=== PATIENT | female | born 1945 | race Caucasian/White ===

== ENCOUNTER 2019-09-21 08:36 | Outpatient (RCR) | payer MEDICARE, MEDICAID, SELFPAY | END 2019-09-28 00:01 | LOC: WOUND 08:36 | PROVIDERS: Family Provider Internal Medicine; Visit Provider Thoracic Surgery (Cardiothoracic Vascular Surgery) | DX: T81.31XA Disruption of external operation (surgical) wound, not elsewhere classified, initial encounter (principal); Y83.8 Other surgical procedures as the cause of abnormal reaction of the patient, or of later complication, without mention of misadventure at the time of the procedure; S80.211A Abrasion, right knee, initial encounter; X58.XXXA Exposure to other specified factors, initial encounter | CPT/HCPCS: 11042 ×3; G0463 ×2 ==

== ENCOUNTER 2019-10-01 10:17 | Day surgery (SDC) | payer MEDICARE, MEDICAID, SELFPAY ==
[2019-09-30 17:29] VITALS: BMI 57.5
[2019-10-01 11:03] LABS: Glucose Point of Care 112 mg/dL (70-110)
[2019-10-01 11:05] VITALS: BP 103/82; PULSE 107; RESP 18; TEMP 36.5; O2SAT 98
[2019-10-01] MEDS: sodium chloride 0.9% 1,000 ML 30 ML IV (11:10)
--- NOTE | 2019-10-01 11:12 | ANES.PREANES ---
Pre-Anesthetic Assessment Pre-Anesthetic Assessment: Height/Weight: Height 1.12 m Weight 71.849 kg Temp Pulse Resp BP Pulse Ox 97.7 F 107 H 18 103/82 98 10/01/19 11:05 10/01/19 11:05 10/01/19 11:05 10/01/19 11:05 10/01/19 11:05 Proposed Procedure: Operation Date: 10/01/19 12:00 Proposed Procedures p Debridement of Left Knee Ampuation(Left) - Pedro Hough MD Last intake: Intake Last Liquid Date 09/30/19 Last Liquid Time 23:30 Last Solid Date 09/30/19 Last Solid Time 18:00 Social: Social History: Tobacco Exam: Pre-Anes Outpt Exam: alert and oriented x 3 Additional Exam Findings (including area of procedure): coarse bilaterally, brething tx to be given Airway: Submandibular: WNL Cervical ROM: WNL MP: 1 Dentition: False Pulmonary: Pulmonary: Asthma and COPD CV/HEM: CV/HEM: CAD, CHF and TN Metabolic: Metabolic: DM Anesthetic Plan: ASA status: IV Anesthesia: Anesthesia Evaluation, General and MAC Meds/Allergies Current Medications: Current Medications Generic Name Dose Route Start Last Admin Trade Name Freq PRN Reason Stop Dose Admin Sodium Chloride 1,000 mls @ 30 ml s/hr 10/01/19 11:00 10/01/19 11:10 Sodium Chloride 0.9% IV 10/02/19 10:59 30 mls/hr .Q24H DOMINGO Administration PFSH Anesthesia PFSH: Medical History (Updated 10/01/19 @ 11:13 by Zackary Tineo MD) Arteriosclerotic heart disease (Acute) Carotid stenosis (Acute) Colon polyp (Acute) Critical lower limb ischemia (Acute) Diabetes mellitus (Acute) Diverticulosis (Acute) ESRD (end stage renal disease) on dialysis (Acute) Essential hypertension (Acute) Gastritis (Acute) Normal colonoscopy (Acute) NSTEMI (non-ST elevated myocardial infarction) (Acute) Pulmonary hypertension (Acute) PVD (peripheral vascular disease) (Acute) Smoker (Acute) Tricuspid valve regurgitation, nonrheumatic (Acute) Surgical History (Updated 10/01/19 @ 11:13 by Zackary Tineo MD) H/O carpal tunnel repair (Acute) H/O total knee replacement (Acute) History of arteriovenostomy for renal dialysis (Acute) History of back surgery (Acute) History of below knee amputation (Acute) History of cataract extraction (Acute) History of PTCA (Acute) History of total hip replacement (Acute) Hx of above knee amputation (Acute) Social History (Updated 09/30/19 @ 16:28 by Rupal Rodriguez RN) Smoking and tobacco status: current every day smoker cigarettes Packs smoked per day: 0.5 Second hand smoke exposure: Yes Smoking risk assessment/counseling performed?: Yes Data Anesthesia Labs: Other Labs: Laboratory Results - last 48 hr 10/01/19 10:59 POC Glucose 112 Cardiac Studies: No Data to Display
[2019-10-01 11:33] VITALS: PULSE 96; RESP 18; O2SAT 97
[2019-10-01 11:36] VITALS: PULSE 108
[2019-10-01 11:55] LABS: Basophils # 0.1 10^3/uL (0.0-0.1); Basophils % 0.6 %; Eosinophils # 0.2 10^3/uL (0.0-0.8); Eosinophils % 2.7 %; Hematocrit 37.9 % (37.0-47.0); Hemoglobin 11.8 g/dL (11.5-15.3); Lymphocytes # 0.7 10^3/uL (0.8-4.8); Mean Corpuscular HGB Conc 31.1 g/dL (30.0-36.0); Mean Corpuscular Hemoglobin 30.3 pg (28.0-34.0); Mean Corpuscular Volume 97.2 fL (81-99); Mean Platelet Volume 9.1 fL (7.4-10.4); Monocytes # 0.6 10^3/uL (0.2-0.9); Monocytes % 6.8 %; Neutrophils # 6.7 10^3/uL (1.8-7.7); Neutrophils % 80.5 %; Nucleated Red Blood Cells % 0 %; Platelet Count 251 10^3/cmm (130-400); Red Cell Distribution Width 17.2 % (12.1-15.1); White Blood Count 8.3 10^3/uL (4.0-10.0)
[2019-10-01] MEDS: ceFAZolin 1,000 mg SDV 1000 MG IRRIGATION (12:20)
[2019-10-01 12:21] LABS: Anion Gap 19.8 (5-19); Blood Urea Nitrogen 13 mg/dL (8-23); Calcium 9.7 mg/Dl (8.8-10.2); Carbon Dioxide 28 mmol/L (22-29); Chloride 93 mmol/L (98-107); Glucose 124 mg/dL (74-106); Potassium 3.8 mmol/L (3.5-5.1); Sodium 137 mmol/L (136-145)
[2019-10-01 12:58] VITALS: BP 99/61; PULSE 104; RESP 18; TEMP 36.1; O2SAT 99
--- NOTE | 2019-10-01 13:06 | P.OP_ITS ---
Operative Report Post-Operative Note: Date of procedure: 10/01/19 Preop Diagnosis: Dehiscence left AKA Post-op diagnosis: same Procedure Done: Incision and debridement of left AKA dehiscence Surgeon: Pedro Hough Anesthesia: MAC Estimated blood loss (mL): 30 IV fluids (mL): 500 Complications: None Condition: stable Disposition: same day Operative Report: Brief History: 74-year-old female with end-stage renal disease and diabetes mellitus with prior bilateral amputations, right BKA and recent left above-knee amputation. She is developed some breakdown of her left AKA incision with some tunneling medially. I have recommended surgical debridement. She has been followed in wound care services. Procedure: Ms. Fiore was taken operating room theater carefully positioned. She received IV conscious sedation anesthesia monitoring. Her entire left AKA was sterilely prepped and draped. Tunneling was noted medially from area of breakdown and this was infiltrated with 1% lidocaine and then opened with a #10 scalpel blade. Wound was then debrided and irrigated by hand. There is also smaller of tunneling laterally which was also opened up this measured only about 2 cm. The more medial incision is approximately 7 cm x 4 cm x 5 cm. After careful irrigation and debridement, the wound was packed wet-to-dry with saline impregnated Kerlix gauze. Sterile dressing was applied. She tolerated procedure well and was awakened from IV conscious sedation and taken to the [facility] surgery department. She will be returned to her local skilled care facility receive daily wet-to-dry dressing changes. I will see her in wound care clinic on Friday. Coding Level of Care Code Acute Director Game for Eugenia Duval
[2019-10-01 13:50] VITALS: BP 126/70; PULSE 107; RESP 18; O2SAT 100
--- NOTE | 2019-11-01 17:48 | PM.HPUD ---
H&P update H&P Update: DATE OF SURGERY/PROCEDURE: 10/01/19 DATE H&P PERFORMED: 09/21/19 H&P UPDATE INFORMATION: H&P completed within last 30 days PREOP DIAGNOSIS: Severe peripheral vascular disease, status post left above-knee amputation with limited dehiscence PRIMARY INDICATION FOR PROCEDURE: Localized dehiscence left AKA wound PLANNED PROCEDURE: Operation Date: 10/01/19 12:00 Proposed Procedures p Debridement of Left Knee Ampuation(Left) - Pedro Hough MD Full H&P Perinent History: Medical/Surgical History: Medical History (Updated 10/25/19 @ 21:05 by Robert Triplett MD) Arteriosclerotic heart disease (Acute) Carotid stenosis (Acute) Colon polyp (Acute) Critical lower limb ischemia (Acute) Diabetes mellitus (Acute) Diverticulosis (Acute) ESRD (end stage renal disease) on dialysis (Acute) Essential hypertension (Acute) Gastritis (Acute) Normal colonoscopy (Acute) NSTEMI (non-ST elevated myocardial infarction) (Acute) Pulmonary hypertension (Acute) PVD (peripheral vascular disease) (Acute) Smoker (Acute) Tricuspid valve regurgitation, nonrheumatic (Acute) Social History: Social History Smoking and tobacco status: current every day smoker cigarettes Packs smoked per day: 0.5 Second hand smoke exposure: Yes Smoking risk assessment/counseling performed?: Yes
== END 2019-10-01 14:15 | disposition skilled nursing facility (03) ==
PROVIDERS: Family Provider Internal Medicine; PCP Internal Medicine; Visit Provider Thoracic Surgery (Cardiothoracic Vascular Surgery)
PROC: (CPT 11042; principal; 2019-10-01 12:00)
DX: T87.81 Dehiscence of amputation stump (principal); F17.210 Nicotine dependence, cigarettes, uncomplicated; I25.10 Atherosclerotic heart disease of native coronary artery without angina pectoris; I50.9 Heart failure, unspecified; I25.2 Old myocardial infarction; E11.22 Type 2 diabetes mellitus with diabetic chronic kidney disease; I12.0 Hypertensive chronic kidney disease with stage 5 chronic kidney disease or end stage renal disease; N18.6 End stage renal disease
CPT/HCPCS: 11042; 12345; 36415; 36416; 80048; 82962; 85025; 94640; 99221; J0690; J2001; J2704; J7030; J7611

== ENCOUNTER 2019-10-28 09:33 | Outpatient (RCR) | payer MEDICARE, OTHER, MEDICAID, SELFPAY ==
--- NOTE | 2019-10-28 10:13 | XR_ITS ---
WS: [id number] CHEST XRAY TECHNIQUE: Portable chest. CLINICAL INFORMATION: picc placement COMPARISON: None. FINDINGS: Right PICC line with tip in the distal SVC. No pneumothorax. Interstitial fibrosis similar to previou s 2019 XR/XR chest 1V portable [id number] IMPRESSION: Right PICC line with tip in distal SVC
[2019-10-28 10:30] VITALS: PULSE 81; RESP 18; TEMP 36.6; O2SAT 97
== END 2019-10-29 23:59 | disposition home or self-care (01) ==
LOC: WOUND 09:33
PROVIDERS: Family Provider Internal Medicine; PCP Internal Medicine; Visit Provider Thoracic Surgery (Cardiothoracic Vascular Surgery)
DX: E11.622 Type 2 diabetes mellitus with other skin ulcer (principal); L97.812 Non-pressure chronic ulcer of other part of right lower leg with fat layer exposed; L97.822 Non-pressure chronic ulcer of other part of left lower leg with fat layer exposed; I96 Gangrene, not elsewhere classified
CPT/HCPCS: 11042; 11045; 71045; 87070; 87077; 87186; 87205; C1751

== ENCOUNTER 2019-11-23 09:34 | Outpatient (RCR) | payer MEDICARE, OTHER, MEDICAID, SELFPAY ==
--- NOTE | 2019-11-16 16:08 | USCV_ITS ---
Angelic Fiore Age: 74 Gender: F : 1945 Exam Date: 11/16/2019 16:07 Ordering Phys: Rboert Triplett MD Technologist: Joselito Mera Exam Location: [facility] [place] Indication: STENOSIS CVA Risk Factors: Smoker Previous Vascular Surgery: Right Brachial BP: / Left Brachial BP: / Right Left Velocity (cm/s) Spectral Plaque Velocity (cm/s) Spectral Plaque Syst/Diast Broadening Syst/Diast Broadening 67.90/ 9.80 Prox CCA 57.10 / 11.40 71.40/ 14.00 Hetro Mid CCA 51.40 / 10.30 Hetro 75.60/ 13.30 Hetro Distal CCA 58.20 / 12.60 Hetro 60.20/ 12.60 Prox ICA 40.70 / 10.30 51.10/ 2.80 Hetro Mid ICA 34.20 / 10.30 Hetro 54.60/ 8.40 Hetro Distal ICA 50.40 / 14.60 Hetro 60.90 ECA 46.10 0.80 ICA/CCA 0.87 Antegrade Vertebral Antegrade 26.60/ 8.70 cm/s 39.00/ 9.20 cm/s Tri Subclavian Forrest 105.0 73.70 0 FINDINGS Mild to moderate heterogeneous plaques of the bifurcation proximal internal carotid arteries. Intimal thickening in the common carotid arteries bilaterally. Antegrade flow in the vertebral arteries bilaterally. Normal Doppler flow velocities in the external carotid arteries bilaterally CONCLUSIONS Mild to moderate heterogeneous plaques at the bifurcations and proximal internal carotid arteries, bilaterally. No significant stenosis, based on the above findings. Dr Robert Triplett MD [facility] (Electronically Signed) Final Date: 17 November 2019 09:38 MTDD
== END 2019-11-27 23:59 | disposition home or self-care (01) ==
LOC: RAD 09:34
PROVIDERS: Family Provider Internal Medicine; PCP Internal Medicine; Visit Provider Thoracic Surgery (Cardiothoracic Vascular Surgery)
DX: E11.622 Type 2 diabetes mellitus with other skin ulcer (principal); L97.812 Non-pressure chronic ulcer of other part of right lower leg with fat layer exposed; L97.822 Non-pressure chronic ulcer of other part of left lower leg with fat layer exposed; I12.0 Hypertensive chronic kidney disease with stage 5 chronic kidney disease or end stage renal disease; E11.22 Type 2 diabetes mellitus with diabetic chronic kidney disease; N18.6 End stage renal disease; Z99.2 Dependence on renal dialysis; I65.23 Occlusion and stenosis of bilateral carotid arteries; I25.10 Atherosclerotic heart disease of native coronary artery without angina pectoris; E03.9 Hypothyroidism, unspecified; M86.8X7 Other osteomyelitis, ankle and foot; F17.200 Nicotine dependence, unspecified, uncomplicated; Z96.651 Presence of right artificial knee joint; Z89.512 Acquired absence of left leg below knee; Z89.511 Acquired absence of right leg below knee
CPT/HCPCS: 11042; 11043; 93880; 97605

== ENCOUNTER 2019-12-28 09:15 | Outpatient (RCR) | payer MEDICARE, OTHER, MEDICAID, SELFPAY | END 2019-12-28 23:59 | disposition home or self-care (01) | LOC: WOUND 09:15 | PROVIDERS: Family Provider Internal Medicine; PCP Internal Medicine; Visit Provider Thoracic Surgery (Cardiothoracic Vascular Surgery) | DX: E11.622 Type 2 diabetes mellitus with other skin ulcer (principal); L97.812 Non-pressure chronic ulcer of other part of right lower leg with fat layer exposed; L97.822 Non-pressure chronic ulcer of other part of left lower leg with fat layer exposed | CPT/HCPCS: 11042; 11043; 15271; 97605; Q4110 ==

== ENCOUNTER 2020-01-06 08:28 | Outpatient (CLI) | payer MEDICARE, MEDICAID, OTHER, SELFPAY ==
--- NOTE | 2020-01-06 08:42 | XR_ITS ---
WS: [id number] KNEE RIGHT TECHNIQUE: 4 views of the right knee CLINICAL INFORMATION: PAIN, REDNESS COMPARISON: None. FINDINGS: Prior postoperative changes right BKA. Advanced degenerative changes right knee with osteop enia. Vascular calcification. Soft tissue edema. Small suprapatellar effusion. Diffuse edema involvin g the soft tissue stump suspicious for cellulitis. No definite evidence of osteomyelitis. Hypertrophi c patella. XR/XR knee RT 4V [id number] IMPRESSION: 1. Postoperative changes right TKA. 2. Diffuse soft tissue edema involving the soft tissue stump. No definite evid ence of osteomyelitis. 3. Osteopenia with advanced degenerative changes.
== END 2020-01-06 08:29 | disposition home or self-care (01) ==
LOC: RAD 08:35
PROVIDERS: Family Provider Internal Medicine; PCP Internal Medicine; Visit Provider Thoracic Surgery (Cardiothoracic Vascular Surgery)
DX: L97.819 Non-pressure chronic ulcer of other part of right lower leg with unspecified severity (principal); M25.561 Pain in right knee; Z96.651 Presence of right artificial knee joint; M85.861 Other specified disorders of bone density and structure, right lower leg
CPT/HCPCS: 73564

== ENCOUNTER 2020-01-19 14:51 | Inpatient (IN) | payer MEDICARE, MEDICAID, SELFPAY ==
[2020-01-18 14:38] VITALS: BMI 56.2
[2020-01-19] VITALS (24 sets, daily range): BP systolic 109–140; BP diastolic 60–106; PULSE 75–112; RESP 12–26; TEMP 36.2–36.7; O2SAT 92–99
--- NOTE | 2020-01-19 09:26 | P.ANESASSM_ITS ---
Pre-Anesthetic Assessment Pre-Anesthetic Assessment: Height/Weight: Height 1.12 m Weight 70.307 kg Preop Diagnosis: Severe peripheral vascular disease, status post left above- knee amputation with limited dehiscence Proposed Procedure: Operation Date: 01/19/20 12:20 Proposed Procedures p Above Knee Amputation Right(Right) - Pedro Hough MD Familial anesthetic complications: None Was Beta Edith taken within 24 hours: N/A Last intake: NPO > 8 hrs Social: Social History: Tobacco and No alcohol Exam: Pre-Anes Outpt Exam: alert, oriented x 3, clear to auscultation bilaterally and regular rate & rhythm Airway: Cervical ROM: WNL MP: 1 Additional comments: edentlous Pulmonary: Pulmonary: SOB Comments: acute pulm htn CV/HEM: CV/HEM: Afib, CAD, HTN, CO and PVD Comments: echo 03/11/19 - mod decreased in LV systolic Fx, ef 40%, mod MVR, severe TVR, RV overload : : Chronic renal failuer Comments: CKD IV on dialysis - diallyzed this morning ( Hepatic: Hepatic: None reported GI: GI: GERD Metabolic: Metabolic: DM and Hyperlipidemia Musc/skel: Musc/skel: None reported Neuropsych: Neuropsych: None reported Comments: carotid artery stenosis Anesthetic Plan: ASA status: 4 Anesthesia: General and Regional (specify below) Risk of > 500 ml blood loss (7ml/kg in children): No PFSH Anesthesia PFSH: Social History Smoking and tobacco status: current every day smoker cigarettes Packs smoked per day: 0.5 Second hand smoke exposure: Yes Smoking risk assessment/counseling performed?: Yes Data Anesthesia Cardiac Studies: No Data to Display
[2020-01-19 10:49] LABS: Glucose Point of Care 56 mg/dL (70-110)
[2020-01-19 11:23] LABS: Basophils % 0.4 %; Eosinophils # 0.1 10^3/uL (0.0-0.8); Eosinophils % 0.9 %; Hematocrit 39.6 % (37.0-47.0); Lymphocytes # 0.7 10^3/uL (0.8-4.8); Lymphocytes % 6.3 %; Mean Corpuscular HGB Conc 30.3 g/dL (30.0-36.0); Mean Corpuscular Hemoglobin 28.4 pg (28.0-34.0); Mean Corpuscular Volume 93.6 fL (81-99); Mean Platelet Volume 8.9 fL (7.4-10.4); Monocytes # 0.9 10^3/uL (0.2-0.9); Monocytes % 7.9 %; Neutrophils # 9.1 10^3/uL (1.8-7.7); Neutrophils % 84.2 %; Nucleated Red Blood Cells % 0 %; Platelet Count 245 10^3/cmm (130-400); Red Blood Count 4.23 10^6/uL (4.1-5.3); Red Cell Distribution Width 15.3 % (12.1-15.1); White Blood Count 10.8 10^3/uL (4.0-10.0)
[2020-01-19 11:25] LABS: INR 1.12 (0.8-1.2)
[2020-01-19 11:29] LABS: Alanine Aminotransferase 15 U/L (0-33); Albumin Level 3.6 g/dL (3.5-5.2); Alkaline Phosphatase 137 IU/L (35-105); Anion Gap 18.5 (5-19); Aspartate Amino Transferase 22 U/L (0-32); Blood Urea Nitrogen 13 mg/dL (8-23); Carbon Dioxide 34 mmol/L (22-29); Chloride 89 mmol/L (98-107); Globulin 5.5 g/dL (1.3-4.6); Glucose 67 mg/dL (65-115); Osmolality Calculated 280 mOsm/kg (285-295); Potassium 3.5 mmol/L (3.5-5.1); Sodium 138 mmol/L (136-145); Total Bilirubin 1.1 mg/dL (0.15-1.2); Total Protein 9.1 g/dL (6.6-8.7)
[2020-01-19] MEDS: sodium chloride 0.9% 1,000 ML 30 ML IV (11:30)
[2020-01-19] MEDS: vancomycin 1,000 MG in sodium chloride 0.9% 250 ML 250 MG IV (11:40)
--- NOTE | 2020-01-19 11:44 | ANES.PROC ---
Anesthesia Procedures Procedure/Date: 01/19/20 Nerve Block ^: Nerve Block 1: Main Anesthesia: general anesthesia Time Out Performed: Yes Consent: requested by attending/covering physician, from patient, risks and benefits reviewed and patient agrees to proceed Nerve block location: femoral (R) Anesthesia monitors applied: pulse oximetry, BP cuff and oxygen Nerve block position: supine Anesthetic Used: ropivicaine 0.5% and with decadron (4 mg) Amount of anesthesia used (mL): 30 Ultrasound used to: recognize landmarks and visualize and ID femerol nerve Nerve Stimulator Used?: No Interscalene/Femoral BLK: 4 stimuplex 21 g needle used for position and inplane approach, visualize local anesthetic spread and no vascular puncture identified Injection: neg aspiration of heme and paresthesia +/- Patient Tolerated Procedure: well and no complications Complications: none
[2020-01-19] MEDS: dextrose 50% syringe 50 mL IVP (11:50)
--- NOTE | 2020-01-19 11:58 | P.HPUD_ITS ---
Surgery/Procedure H&P Update DATE OF PROCEDURE: January 19, 2020 DATE H&P PERFORMED: 01/18/20 H&P UPDATE INFORMATION: I have reviewed H&P completed within last 30 days, I have examined patient prior to procedure and No changes to prior documentation PREOP DIAGNOSIS: Severe peripheral vascular disease, s/p Right BKA with non- healing wound PRIMARY INDICATION FOR PROCEDURE: Non-healing wound Right knee PLANNED PROCEDURE: Operation Date: 01/19/20 12:20 Proposed Procedures p Above Knee Amputation Right(Right) - Pedro Hough MD
[2020-01-19] MEDS: vancomycin 1,000 MG SDV 1000 MG (12:09)
[2020-01-19] MEDS: vancomycin 1,000 MG SDV 1000 MG IRRIGATION (12:44)
--- NOTE | 2020-01-19 14:41 | PM.OP ---
Operative Report Date of procedure: January 19, 2020 Pre-op Diagnosis: Severe peripheral vascular disease, nonhealing right knee wound status post right BKA Post-op diagnosis: same Procedure Done: Right above-knee amputation Specimens removed/disposition: Right lower extremity/pathology Surgeon: Pedro Hough Anesthesia: General and Nerve Block Complications: None Condition: stable Disposition: floor Brief History: 74-year-old female with diabetes mellitus and end-stage renal disease on hemodialysis. She is previously status post left above-knee amputation last August and a right below-knee amputation in January 2019. She developed a chronic wound of her right knee which is failed to heal despite aggressive therapy through wound care services. She was evaluated by Dr. Long from orthopedic services as this lesion does extend down to the patella. He did not feel there was a good way of healing this wound even with the assistance of orthopedist specialty to consider even removal of patella. Given the chronic nature of the wound and the slowly increasing size as well as some substantial discomfort, right above-knee amputation has been recommended. Ms. Fiore was enthusiastic to proceed with surgery. Procedure: Ms. Fiore was taken to the operating room and placed on the OR table in the supine position. She underwent general endotracheal anesthesia. The entire right lower extremity was sterilely prepped and draped. Right thigh was marked for incision line. #10 scalpel blade was utilized to circumferentially incise the skin in a fish[place] pattern. Anterior musculature was sharply divided utilizing scalpel and minimal use of cautery. Periosteal elevator was used for dissecting the periosteum off of the femur. Oscillating saw was utilized to divide the femur. Amputation knife was then used posteriorly to complete amputation of the right lower extremity. Meticulous inspection was carried out and hemostasis was controlled with minimal use of cautery, surgical clips, and suture ligature as required. The superficial femoral artery was controlled, retracted proximally, ligated and divided. The sciatic nerve was dissected proximally, ligated, and divided. The wound was irrigated with large amounts of antibiotic solution. Hemostasis was confirmed. A large Hemovac drain was placed beneath the fascia. The fascia was reapproximated with interrupted 0 and 2-0 Vicryl suture. Skin was reapproximated in an interrupted mattress fashion with monofilament suture. Sterile dressings were applied followed by a bulky dressing. The patient tolerated the procedure well and was taken to PACU in stable condition. We will seek consultation of our nephrology colleagues for planned hemodialysis on Friday.
--- NOTE | 2020-01-19 14:45 | SUR.PHASEI ---
1443 PATIENT TO PACU AT THIS TIME FROM OR. RR EVEN AND UNLABORED. SPO2, 97% ON RA. DRESSING IN PLACE TO RIGHT UPPER LEG, CDI WITH HEMOVAC DRAIN IN PLACE. WATERS CATH IN PLACE, DRAINING DARK, LONNIE URINE.
[2020-01-19] MEDS: ondansetron 2 mg/ML SDV 2 mL 4 MG IVP (14:56)
[2020-01-19] MEDS: HYDROmorphone 1 mg/mL INJ 1 mL 0.5 MG IVP ×2 (14:59→15:11)
--- NOTE | 2020-01-19 15:18 | SUR.PHASEI ---
1518 D STICK 101 MG/DL
[2020-01-19 15:22] LABS: Glucose Point of Care 101 mg/dL (70-110)
[2020-01-19] MEDS: morphine 4 mg/mL SDV 1 mL 2 MG IVP (15:30)
--- NOTE | 2020-01-19 15:54 | SUR.PHASEI ---
1541 PATIENT TO MED SURG AT THIS TIME. RR EVEN AND UNLABORED. DRESSING TO RIGHT KNEE, CDI WITH HEMOVAC DRAIN IN PLACE.
--- NOTE | 2020-01-19 15:55 | SUR.PHASEI ---
1541 ANESTHESIA AWARE OF LAST PAIN MEDICATION GIVEN. THIS NURSE WITH PATIENT UNTIL 155
[2020-01-19] MEDS: HYDROcodone-acetaminophen 5-325 mg Tablet 1 TAB PO ×2 (16:49→21:42)
[2020-01-19] MEDS: calcium carbonate 500 mg Chew Tablet 200 MG PO ×2 (16:50→20:51)
[2020-01-19 17:27] LABS: Glucose Point of Care 110 mg/dL (70-110)
[2020-01-19] MEDS: ketorolac 30 mg/mL INJ IVP (20:32)
[2020-01-19 21:17] LABS: Glucose Point of Care 156 mg/dL (70-110)
[2020-01-19] MEDS: TRAMadol 50 mg Tablet PO (22:57)
[2020-01-20] VITALS (15 sets, daily range): BP systolic 94–117; BP diastolic 49–73; PULSE 68–102; RESP 16–18; TEMP 36.4–37.2; O2SAT 94–100
[2020-01-20] MEDS: HYDROcodone-acetaminophen 5-325 mg Tablet 1 TAB PO ×3 (02:10→12:15)
[2020-01-20] MEDS: ketorolac 30 mg/mL INJ IVP ×2 (03:59→19:54)
[2020-01-20 06:35] LABS: Glucose Point of Care 135 mg/dL (70-110)
--- NOTE | 2020-01-20 06:52 | P.PN_ITS ---
Subjective Subjective: Interval history: Postop day #1 status post right above-knee amputation. Hemovac drainage output 50 cc overnight. She remains in good spirits with surprisingly only modest discomfort. Vitals/I&O/Wt Last Vital Signs Temp 98.6 F 01/20/20 03:43 Pulse 92 01/20/20 03:43 Resp 18 01/20/20 03:43 BP 108/54 01/20/20 03:43 Pulse Ox 100 01/20/20 03:43 01/19/20 01/19/20 01/20/20 14:59 22:59 06:59 Intake Total 250 / 250 1000 / 1250 Output Total 500 / 500 180 / 680 70 / 750 Balance -250 / -250 -180 / -430 930 / 500 Weight last 48 hrs Weight 155 lb Physical Exam Extremity: NARRATIVE EXTREMITY EXAM: Right AKA dressing remains in place. Hemovac drain is in place with low output. Urinary Catheter Management^: Rousseau: Cath Placed During This Visit: yes Reason for Continuing Indwelling Catheter: Acute Urinary Retention or Obstruction Urinary Catheter Date of Insertion: 01/19/20 Urinary Catheter Time of Insertion: 12:20 Data : 01/19/20 10:46 01/19/20 10:46 A&P Assessment and plan (1) Status post above-knee amputation of right lower extremity: Postop day #1 status post right above-knee amputation. Low Hemovac drain output. Plan: I will plan to discontinue the VAC drain later this evening. We will plan for hemodialysis tomorrow morning, and if continues to do well will plan for [facility] tomorrow afternoon. Status: Acute Attestations Medical Necessity Statement*: Status post right above-knee amputation due to nonhealing right lower extremity wound Time Spent in Patient Care: less than 15 minutes Coding Level of Care Code Acute Manager Investment for Eugenia Duval Diagnoses Status post above-knee amputation of right lower extremity Z89.611
[2020-01-20] MEDS: calcium carbonate 500 mg Chew Tablet 200 MG PO ×3 (08:08→21:51)
[2020-01-20] MEDS: atorvastatin 40 mg Tablet PO (08:09)
[2020-01-20] MEDS: gabapentin 100 mg Capsule PO (08:09)
[2020-01-20] MEDS: citalopram 20 mg Tablet PO (08:09)
[2020-01-20] MEDS: pantoprazole DR 40 mg Tablet PO (08:09)
--- NOTE | 2020-01-20 10:49 | PC.NURSE ---
Patient participated in bed bath. Patient's drain still intact with 10ml of bloody drainage. Bulky sue wrap dressing intact to right knee amputation. Right leg elevated on pillow. Patient pleasant and no change in assessment.
[2020-01-20 11:13] LABS: Glucose Point of Care 199 mg/dL (70-110)
--- NOTE | 2020-01-20 11:52 | PC.CHAP ---
Pastoral Care Encounter/Spiritual Assessment Type of Contact [] Declined mine safety director visit [] Patient/Family/Request visit [] Outpatient visit [] Follow-up visit [] Physician referral [] Code/Alert [x] Routine visit [] Staff referral [] Actively dying [] Patient sleeping [] Family support [] [] Out of room [] Palliative care [] [] Receiving care in room [] Pre-surgical visit [] Trauma [] Long length of stay [] ICU visit [] Other: Relational/Emotional Strength [] Patient feels connected with others/family/visitors/staff [] Distress [x] Loneliness/isolation [] Abandonment Spirituality of Patient [] Person of Edie [] Attends Baptism of their Edie [] Believes in Prayer [] Reads Bible or Hindu materials [x] There are Spiritual issues to be addressed Supervisory Aide Interventions [x] Prayer [x] Active listening [x] Non-anxious presence [x] Spiritual/emotional support [] Crisis/trauma care [] Spiritual counseling [] Bereavement support [] Provided bereavement packet [] Provided Bible/devotional materials [] Provided toy/stuffed animal, coloring book to patient or family member [] Provided Communion [] Anointing/[place] [] Salvation [x] Completed spiritual assessment [] Other: Impact on Illness or Injury [] Angry [] Fearful [] Anxious [] Often cries [] Exhaustion [] Unable to work [] Unable to attend presybeterian [] Unable to walk/stand [] Unable to read [] Unable to drive [] Unable to eat/drink [] Unable to sleep [] Unable to be with family [] Patient intubated [x] Other: Summary Patient lives by herself and has adult children in [place]. Patient is concerned about paying for re-hab treatment and her other bills. The gospel message was proclaimed and prayer provided. Time spent with patient 15 minutes
--- NOTE | 2020-01-20 14:30 | PC.NURSE ---
visited patient. Unwrapped patients's surgical site dressing and redressed. No new orders at this time.
--- NOTE | 2020-01-20 15:39 | PM.PN ---
Subjective Subjective: Interval history: Angelic is seen post op day 1 following right AKA. Feels pretty well with controlled pain, no edema and no other volume assoc Sx. No uremic Sx. No edema and no other volume assoc Sx. Eating and drinking normally. Hemodynamics stable. Dialyzed on Fri, schedule locally under Dr Mitch Flores. 3hr treatment. Vitals/I&O/Wt Last Vital Signs Temp 98.1 F 01/20/20 10:41 Pulse 87 01/20/20 15:04 Resp 16 01/20/20 15:04 BP 106/49 01/20/20 10:41 Pulse Ox 98 01/20/20 15:04 01/20/20 01/20/20 01/20/20 06:59 14:59 22:59 Intake Total 1000 / 1250 200 / 200 Output Total 70 / 750 Balance 930 / 500 200 / 200 Physical Exam Const: COMMON NORMALS: no apparent distress, average body habitus and oriented x3 HENMT: COMMON NORMALS: normocephalic HEAD & SCALP: normocephalic Eye: COMMON NORMALS: PERRL and EOMs intact bilaterally PUPIL: Yes PERRL Neck/C-Spine: COMMON NORMALS: full ROM, no lymphadenopathy and no JVD Lymph: LYMPHATIC: no lymphadenopathy noted Chest: COMMONS NORMALS: inspection of chest normal and palpation of chest normal Resp: COMMON NORMALS: normal respiratory effort and no retractions EFFORT & INSPECTION: No paradoxical thoraco-abdominal movements Cardio: COMMON NORMALS: no JVD and regular rate RATE: regular rate GI: COMMON NORMALS: normal to inspection, nondistended, normoactive bowel sounds Extremity: COMMON NORMALS: normal to inspection and full ROM Neuro: COMMON NORMALS: oriented x3 Urinary Catheter Management^: Rousseau: Cath Placed During This Visit: yes Reason for Continuing Indwelling Catheter: Acute Urinary Retention or Obstruction Urinary Catheter Date of Insertion: 01/19/20 Urinary Catheter Time of Insertion: 12:20 Data : 01/19/20 10:46 01/19/20 10:46 A&P Additional A&P Information 1. ESRD - dialysis organized for tomorrow - 3K, UF 2L - dose meds for eGFR < 15 on dialysis 2. S/p AKA per Dr Hough - analgesics etc - POD 1 3. Hemodynamics look good 4. Anemia at goal for ESRD - for DC after dialysis tomorrow, will follow closely Attestations Medical Necessity Statement*: ESRD mgmt Coding Level of Care Code Acute Customs Opener Verifier Packer for Eugenia Duval
[2020-01-20 17:04] LABS: Glucose Point of Care 166 mg/dL (70-110)
--- NOTE | 2020-01-20 17:55 | PC.NURSE ---
Patient tolerating her diet, no nausea. Pain well controlled with Hydrocodone and positioning. Patient's dressing changed per Dr. Hough. right leg stump elevated on pillow, Dressing dry and intact. Resp. even and unlabored, patient on RA.
[2020-01-20 21:39] LABS: Glucose Point of Care 172 mg/dL (70-110)
[2020-01-21] VITALS (9 sets, daily range): BP systolic 103–112; BP diastolic 61–69; PULSE 93–106; RESP 16–18; TEMP 37.2–37.4; O2SAT 95–97
--- NOTE | 2020-01-21 06:54 | P.DS_ITS ---
Discharge Providers Date of Admission: 01/19/20 14:51 Date of Discharge: January 21, 2020 Attending Provider at Admission: Pedro Hough MD Attending Provider at Discharge: Pedro Hough MD Primary Care Provider: Boris Chaudhary DO Diagnoses at Discharge Discharge Diagnosis (1) Status post above-knee amputation of right lower extremity: Status: Acute Reason for Visit Reason for Visit: Brief History: Nonhealing right lower extremity wound Hospital Course Hospital Course: Ms. Fiore is a 74-year-old female with end-stage renal disease on chronic hemodialysis, diabetes mellitus, severe peripheral vascular disease. She is status post left above-knee amputation and right below-knee amputation. She has a nonhealing wound of her right knee which is failed to heal despite aggressive medical management through wound care services. After consultation with orthopedic service, it was felt that this would be a chronic wound. Due to increasing pain, patient is requested revision to an above-knee amputation. She was electively admitted on January 18 and underwent right above-knee amputation. Postoperatively she has done very well. Her Hemovac drain was left in for about 1 day with low output and then removed. Her incision is clean and dry. Minimal swelling. Pain is been under good control with oral narcotics. She has received hemodialysis here which is tolerated well. Tolerating diet well. She will be discharged back to [facility] today in stable condition. She will follow-up with wound care services next Friday. Physical Exam Extremity: OTHER: Right AKA incision is clean and dry and intact. Minimal swelling. No evidence for infection. No drainage or erythema. Urinary Catheter Management^: Rousseau: Cath Placed During This Visit: yes Reason for Continuing Indwelling Catheter: Acute Urinary Retention or Obstruction Urinary Catheter Date of Insertion: 01/19/20 Urinary Catheter Time of Insertion: 12:20 Discharge Data Data Completed and Pending: Pending at discharge Category Date Time Status PRBC [Leukocyte R educed RBC] Routin e Lab 01/19/20 10:46 Results Type and Screen R outine Lab 01/19/20 10:46 Results Pathology: Surgic al [PTH] Routine Pth 01/19/20 13:40 Received Labs from last 24 hours 01/20/20 01/20/20 01/20/20 21:32 16:56 10:44 POC Glucose 172 166 199 Vitals: Last Vital Signs Temp 99.2 F 01/21/20 04:00 Pulse 93 01/21/20 04:00 Resp 18 01/21/20 04:00 BP 108/64 01/21/20 04:00 Pulse Ox 97 01/21/20 04:00 Discharge Plan Discharge Patient Disposition: Xfer SNF Condition: Stable Prescriptions: Continued Fiber Gummies 2 gram tablet,chewable 2 gm PO BID RF: 0 hydroxyzine HCl 25 mg tablet 25 mg PO BID PRN (Reason: Itching) RF: 0 acetaminophen [Tylenol] 325 mg Tablet 325 mg PO QID PRN (Reason: Pain) RF: 0 hydrocodone-acetaminophen 5-325 mg Tablet 1 tab PO Q6H PRN (Reason: Pain) RF: 0 ondansetron HCl [Zofran] 4 mg Tablet 4 mg PO QMWF PRN (Reason: NAUSEA) RF: 0 bisacodyl [Dulcolax (bisacodyl)] 10 mg Suppository 10 mg VT DAILY PRN (Reason: CONSTIPATION) RF: 0 gabapentin 100 mg Capsule 100 mg PO DAILY RF: 0 Tresiba FlexTouch U-100 100 unit/mL (3 mL) Insulin Pen 14 unit SUBCUT DAILY RF: 0 albuterol sulfate 2.5 mg /3 mL (0.083 %) Solution For Nebulization 2.5 mg INHALATION QID PRN (Reason: Shortness Of Breath Or Wheezing) RF: 0 nitroglycerin [Nitrostat] 0.4 mg Tablet, Sublingual 0.4 mg SUBLINGUAL Q5M PRN (Reason: Chest Pain) RF: 0 atorvastatin [Lipitor] 40 mg Tablet 40 mg PO DAILY RF: 0 loperamide [Imodium A-D] 2 mg Capsule 2 mg PO Q4H PRN (Reason: Diarrhea) RF: 0 citalopram [Celexa] 20 mg Tablet 20 mg PO DAILY RF: 0 pantoprazole [Protonix] 40 mg Tablet,Delayed Release (Dr/Ec) 40 mg PO DAILY RF: 0 calcium carbonate [Tums] 200 mg calcium (500 mg) Tablet,Chewable 200 mg PO TID RF: 0 insulin lispro [Humalog KwikPen Insulin] 100 unit/mL Insulin Pen 20 unit SUBCUT TID RF: 0 Discharge Orders: Discharge Order (Routine); Ordered 01/21/20 Ordered By: Pedro Hough Referrals: WOUND CARE CLINIC, [Staff Physician] - 01/25/20 Discharge Diet: Usual diet Discharge Activity: Limit activity as instructed Activity Restrictions/Additional Instructions: Clean right above-knee amputation incision daily and then paint with Betadine and cover. Resume normal dialysis schedule Discharge Attestations Time Spent in Discharge Care*: less than 30 min Specific Discharge Activities: Specific discharge activities: educating patient, documenting/other paperwork and evaluating patient/reviewing data Time Spent in Smoking Cessation: Time spent discussing smoking cessation with patient: 3 to 10 minutes Details of Smoking Cessation Education: Long history tobacco use, again encouraged her to try to decrease. I think this will be very difficult. Status at Discharge: Cognitive status at discharge: cognitively intact , Behavioral status at discharge: cooperative , Functional status at discharge: wheelchair bound Overall status at discharge: patient is progressing back to baseline Quality Metrics Clinical Quality Measures During this hospital stay, did patient experience: None Coding Level of Care Code Acute Loop Drier Operator for Eugenia Duval Diagnoses Status post above-knee amputation of right lower extremity Z89.611
[2020-01-21 07:01] LABS: Glucose Point of Care 141 mg/dL (70-110)
--- NOTE | 2020-01-21 10:33 | P.PN_ITS ---
Subjective Subjective: Interval history: Agnelic is seen on dialysis today, doing well, slight headache otherwise no new complaints. Post op day 2 following right AKA. No edema and no other volume assoc Sx. No uremic Sx. No edema and no other volume assoc Sx. Eating and drinking normally. Hemodynamics stable. Dialyzed on Fri, MW schedule locally under Dr Mitch Flores. 3hr treatment. Vitals/I&O/Wt Last Vital Signs Temp 99.2 F 01/21/20 04:00 Pulse 93 01/21/20 04:00 Resp 18 01/21/20 04:00 BP 108/64 01/21/20 04:00 Pulse Ox 97 01/21/20 04:00 01/20/20 01/21/20 01/21/20 22:59 06:59 14:59 Intake Total 200 / 400 Balance 200 / 400 Physical Exam Const: COMMON NORMALS: no apparent distress, average body habitus and oriented x3 HENMT: COMMON NORMALS: normocephalic HEAD & SCALP: normocephalic Eye: COMMON NORMALS: PERRL and EOMs intact bilaterally PUPIL: Yes PERRL Neck/C-Spine: COMMON NORMALS: full ROM, no lymphadenopathy and no JVD Lymph: LYMPHATIC: no lymphadenopathy noted Chest: COMMONS NORMALS: inspection of chest normal and palpation of chest normal Resp: COMMON NORMALS: normal respiratory effort and no retractions EFFORT & INSPECTION: No paradoxical thoraco-abdominal movements Cardio: COMMON NORMALS: no JVD and regular rate RATE: regular rate GI: COMMON NORMALS: normal to inspection, nondistended, normoactive bowel sounds Extremity: COMMON NORMALS: normal to inspection and full ROM Neuro: COMMON NORMALS: oriented x3 Urinary Catheter Management^: Rousseau: Cath Placed During This Visit: yes Reason for Continuing Indwelling Catheter: Acute Urinary Retention or Obstruction Urinary Catheter Date of Insertion: 01/19/20 Urinary Catheter Time of Insertion: 12:20 Data : 01/19/20 10:46 01/19/20 10:46 A&P Additional A&P Information 1. ESRD - seen on dialysis - 3K, UF 2L - dose meds for eGFR < 15 on dialysis 2. S/p AKA per Dr Hough - analgesics etc - POD 2 3. Hemodynamics look good 4. Anemia at goal for ESRD - for DC after dialysis today Attestations Medical Necessity Statement*: ESRD mgmt Coding Level of Care Code Acute Hydrotechnical Specialist for Eugenia Duval
[2020-01-21] MEDS: HYDROcodone-acetaminophen 5-325 mg Tablet 1 TAB PO (11:04)
[2020-01-21] MEDS: morphine 4 mg/mL SDV 1 mL 2 MG IVP (11:17)
[2020-01-21] MEDS: ondansetron 2 mg/ML SDV 2 mL 4 MG IVP (12:26)
--- NOTE | 2020-01-21 13:03 | PC.NURSE ---
Patient rec dialysis today between 2433-1348. Had some nausea after dialysis. Order from Dr. Mayo for nausea given. Patient to return to care of residential today. Dressing to patients stump changed this morning.
--- NOTE | 2020-01-21 13:49 | PC.NURSE ---
Patient's nausea resolved. Pain 3 on 0-19 number scale. Patient to return to [facility]. Report faxed to Genevieve Villalba.
--- NOTE | 2020-01-21 15:20 | PC.NURSE ---
IV to patient's right AC removed intact. no S/S of infection noted. pressure dressing applied. Patient scarlett well.
[2020-01-21 17:09] LABS: Glucose Point of Care 185 mg/dL (70-110)
[2020-01-21 21:27] LABS: Glucose Point of Care 332 mg/dL (70-110)
[2020-01-21 21:27] LABS: Glucose Point of Care 267 mg/dL (70-110)
[2020-01-21] MEDS: calcium carbonate 500 mg Chew Tablet 200 MG PO (21:28)
[2020-01-22] VITALS (8 sets, daily range): BP systolic 88–116; BP diastolic 46–72; PULSE 90–106; RESP 16–19; TEMP 36.5–37.3; O2SAT 94–97
[2020-01-22 06:40] LABS: Glucose Point of Care 155 mg/dL (70-110)
[2020-01-22] MEDS: calcium carbonate 500 mg Chew Tablet 200 MG PO (08:30)
[2020-01-22] MEDS: pantoprazole DR 40 mg Tablet PO (08:30)
[2020-01-22] MEDS: atorvastatin 40 mg Tablet PO (08:30)
[2020-01-22] MEDS: citalopram 20 mg Tablet PO (08:30)
[2020-01-22] MEDS: gabapentin 100 mg Capsule PO (08:30)
--- NOTE | 2020-01-22 08:46 | PC.SOCIAL ---
Follow up IM explained, signed by patient and initialied. Pt indicates ready to go. No questions. Copy provided original in chart
[2020-01-22 11:54] LABS: Glucose Point of Care 157 mg/dL (70-110)
--- NOTE | 2020-01-22 12:41 | PC.NURSE ---
Report I called report to Mell Ramsey RN at [facility] regarding pt.
--- NOTE | 2020-01-22 12:48 | P.PN_ITS ---
Subjective Subjective: Interval history: Ms. Fiore's discharge yesterday was delayed due to transportation difficulties. This is currently being investigated. She is otherwise doing quite well and stable. Incision line is clean and dry. She tolerated her dialysis yesterday morning without difficulty. Vitals/I&O/Wt Last Vital Signs Temp 98.7 F 01/22/20 11:31 Pulse 105 H 01/22/20 11:31 Resp 18 01/22/20 11:31 BP 91/53 01/22/20 11:31 Pulse Ox 97 01/22/20 11:31 01/21/20 01/22/20 01/22/20 22:59 06:59 14:59 Intake Total 240 / 240 120 / 120 Balance 240 / 240 120 / 120 Physical Exam Extremity: OTHER: Right AKA incision is clean and dry. There is a small amount of ecchymosis along the medial border. No drainage. No erythema. Urinary Catheter Management^: Rousseau: Cath Placed During This Visit: yes, but has since been removed by the nurse Reason for Continuing Indwelling Catheter: Not indwelling catheter Urinary Catheter Date of Insertion: 01/19/20 Urinary Catheter Time of Insertion: 12:20 Date Urinary Catheter Removed: 01/21/20 Time Urinary Catheter Discontinued: 14:22 Data : 01/19/20 10:46 01/19/20 10:46 A&P Assessment and plan (1) Status post above-knee amputation of right lower extremity: We are currently awaiting transportation arrangements to allow for return back to [facility]. She is currently scheduled to follow-up with wound care services to see me next Friday. Status: Acute Attestations Medical Necessity Statement*: Status post above-knee amputation, delay in difficulties with arranging appropriate transportation after discharge. Coding Level of Care Code Acute Social Worker Palliative Care for Eugenia Duval Diagnoses Status post above-knee amputation of right lower extremity Z89.611
== END 2020-01-22 13:15 | disposition skilled nursing facility (03) | DRG 239 ==
LOC: MEDSURG 14:52
PROVIDERS: Anesthesiology; Admitting Provider Thoracic Surgery (Cardiothoracic Vascular Surgery); Family Provider Internal Medicine; PCP Internal Medicine; Visit Provider Thoracic Surgery (Cardiothoracic Vascular Surgery)
PROC: (CPT 27590; principal; 2020-01-19 12:00)
DX: E11.51 Type 2 diabetes mellitus with diabetic peripheral angiopathy without gangrene (principal); N18.6 End stage renal disease; I12.0 Hypertensive chronic kidney disease with stage 5 chronic kidney disease or end stage renal disease; T87.81 Dehiscence of amputation stump; E11.22 Type 2 diabetes mellitus with diabetic chronic kidney disease; Z99.2 Dependence on renal dialysis; Z79.4 Long term (current) use of insulin; Z89.512 Acquired absence of left leg below knee; Z89.511 Acquired absence of right leg below knee; F17.210 Nicotine dependence, cigarettes, uncomplicated; I25.10 Atherosclerotic heart disease of native coronary artery without angina pectoris; E78.5 Hyperlipidemia, unspecified; K21.9 Gastro-esophageal reflux disease without esophagitis; D63.1 Anemia in chronic kidney disease; Z79.891 Long term (current) use of opiate analgesic; Y83.8 Other surgical procedures as the cause of abnormal reaction of the patient, or of later complication, without mention of misadventure at the time of the procedure
CPT/HCPCS: 11042; 12345; 36415; 36416; 51702; 80053; 82962; 85025; 85610; 86850; 86900; 86920; 88307; 94640; 96372; 96375; J1100; J1170; J1815; J1885; J2001; J2270; J2405; J2704; J2795; J3010; J3370; J3490; J7030; J7050; J7611; P9016; Q3014

== ENCOUNTER 2020-01-25 08:52 | Outpatient (RCR) | payer MEDICARE, MEDICAID, SELFPAY ==
--- NOTE | 2020-01-13 | MR_ITS ---
WS: [id number] MRI RIGHT KNEE, noncontrast HISTORY: PAIN, REDNESS, NONHEALING ULCER, R/O OSTEOMYELITIS COMPARISON: Radiograph 01/06/2020 There is extensive soft tissue edema throughout the muscles and subcutaneous soft tissues of the RIGH T knee. No focal collection. Small suprapatellar joint effusion. Patella is partially displaced later ally with severe degenerative changes at the patellofemoral joint space. There is a [id number] amputation. There is no marrow edema in the amputation section. There is a small amount of marrow edema in the femoral condyles bilaterally which is probably degenerative. Ther e is significant motion artifact and study is limited without IV contrast. MR/MR knee RT wo con* [id number] IMPRESSION: 1. Study is limited without IV contrast and due to to motion. 2. Diffuse soft tissue edema. No marrow edema or secondary findings of osteomy elitis. 3. Severe patellofemoral joint space arthritis with partial lateral subluxatio n of patella.
== END 2020-01-27 23:59 | disposition home or self-care (01) ==
LOC: WOUND 08:52
PROVIDERS: Family Provider Internal Medicine; PCP Internal Medicine; Visit Provider Thoracic Surgery (Cardiothoracic Vascular Surgery)
DX: E11.622 Type 2 diabetes mellitus with other skin ulcer (principal); L97.812 Non-pressure chronic ulcer of other part of right lower leg with fat layer exposed; L97.822 Non-pressure chronic ulcer of other part of left lower leg with fat layer exposed; M25.561 Pain in right knee; M13.861 Other specified arthritis, right knee; M24.3 Pathological dislocation of joint, not elsewhere classified; R60.9 Edema, unspecified; Z89.511 Acquired absence of right leg below knee
CPT/HCPCS: 11042; 11044; 73721; 97597

== ENCOUNTER 2020-02-01 09:13 | Outpatient (CLI) | payer MEDICARE, MEDICAID, SELFPAY | END 2020-02-01 09:14 | disposition home or self-care (01) | LOC: WOUND 09:14 | PROVIDERS: Family Provider Internal Medicine; PCP Internal Medicine; Visit Provider Thoracic Surgery (Cardiothoracic Vascular Surgery) | DX: E11.622 Type 2 diabetes mellitus with other skin ulcer (principal); L97.822 Non-pressure chronic ulcer of other part of left lower leg with fat layer exposed | CPT/HCPCS: 11042 ==

== ENCOUNTER 2020-02-08 09:23 | Outpatient (CLI) | payer MEDICARE, MEDICAID, SELFPAY | END 2020-02-08 09:24 | disposition home or self-care (01) | LOC: WOUND 09:24 | PROVIDERS: Family Provider Internal Medicine; PCP Internal Medicine; Visit Provider Thoracic Surgery (Cardiothoracic Vascular Surgery) | DX: E11.622 Type 2 diabetes mellitus with other skin ulcer (principal); L97.822 Non-pressure chronic ulcer of other part of left lower leg with fat layer exposed | CPT/HCPCS: 11042 ==

== ENCOUNTER 2020-02-15 08:52 | Outpatient (CLI) | payer MEDICARE, MEDICAID, SELFPAY | END 2020-02-15 08:53 | disposition home or self-care (01) | LOC: WOUND 08:53 | PROVIDERS: Family Provider Internal Medicine; PCP Internal Medicine; Visit Provider Thoracic Surgery (Cardiothoracic Vascular Surgery) | DX: E11.622 Type 2 diabetes mellitus with other skin ulcer (principal); L97.822 Non-pressure chronic ulcer of other part of left lower leg with fat layer exposed | CPT/HCPCS: 99213; G0463 ==

== ENCOUNTER → 2020-02-18 10:10 | Day surgery (SDC) | payer MEDICARE, MEDICAID, SELFPAY ==
[2020-02-17 18:16] VITALS: BMI 56.9
--- NOTE | 2020-02-18 10:46 | ANES.PREANE2 ---
Pre-Anesthetic Assessment Pre-Anesthetic Assessment: Height/Weight: Height 1.12 m Weight 71.214 kg Preop Diagnosis: Severe peripheral vascular disease, nonhealing right knee wound status post right BKA Proposed Procedure: Operation Date: 02/18/20 10:40 Proposed Procedures p suture removal,Debridement, wound vac(Not Applicable) - Pedro Hough MD Familial anesthetic complications: None Social: Social History: Tobacco and No alcohol Exam: Pre-Anes Outpt Exam: alert, oriented x 3, clear to auscultation bilaterally and regular rate & rhythm Airway: Cervical ROM: WNL MP: 1 Dentition: Other (edentulous) Pulmonary: Pulmonary: SOB Comments: pulmonary HTN CV/HEM: CV/HEM: CAD, HTN, TN and PVD (s/p AKA) Comments: ECho 03/17 --> moderately decreased LV systolic function, EF 40%, mod MVR, Severe TVR, RV overload : : Chronic renal failure (on dialysis) GI: GI: GERD Metabolic: Metabolic: DM Neuropsych: Comments: carotid stenosis Anesthetic Plan: ASA status: 4 Risk of > 500 ml blood loss (7ml/kg in children): No PFSH Anesthesia PFSH: Medical History (Updated 10/25/19 @ 21:05 by Robert Triplett MD) Arteriosclerotic heart disease Carotid stenosis Colon polyp Critical lower limb ischemia Diabetes mellitus Diverticulosis ESRD (end stage renal disease) on dialysis Essential hypertension Gastritis Normal colonoscopy NSTEMI (non-ST elevated myocardial infarction) Pulmonary hypertension PVD (peripheral vascular disease) Smoker Tricuspid valve regurgitation, nonrheumatic Surgical History (Updated 01/20/20 @ 06:54 by Pedro Hough MD) H/O carpal tunnel repair H/O total knee replacement History of arteriovenostomy for renal dialysis History of back surgery History of below knee amputation History of cataract extraction History of PTCA History of total hip replacement Hx of above knee amputation Social History Smoking and tobacco status: current every day smoker cigarettes Packs smoked per day: 0.5 Second hand smoke exposure: Yes Smoking risk assessment/counseling performed?: Yes Data Anesthesia Cardiac Studies: No Data to Display
--- NOTE | 2020-02-18 11:09 | PM.PN ---
Subjective Subjective: Interval history: Ms. Fiore is status post a right above-knee amputation. She developed some suppuratiion along the incision line and when I saw her in wound care clinic last Friday, I was concerned that this would need to be opened for incision and drainage and wound VAC placement. Upon examination today, the wound is actually mildly improved though still a bit of suppuratiion on the suture line which is intact. I do feel she would benefit from vancomycin. Unfortunately, this cannot be given postdialysis run per their protocol. Therefore we will have a PICC line placed to allow for 2-week course. We will also administer 1 g of vancomycin today and she will be returned to [facility]. I will see her in wound care clinic next week. Vitals/I&O/Wt Weight last 48 hrs Weight 157 lb Physical Exam Extremity: NARRATIVE EXTREMITY EXAM: Her right AKA incision is still intact. There is slightly decreased edema and less erythema. There is still some suppuratiion all the suture line. Therefore, I will delay in planning to remove sutures and place a wound VAC. We will initiate PICC line for antibiotic placement. A&P Assessment and plan (1) Status post above-knee amputation of right lower extremity: I would recommend a 2-week course of vancomycin due to the continued suppuratiion along the incision line, though fortunately, at this time, I do not think we have to open up this yet. If we can give vancomycin following her dialysis 3 times weekly and then continue close monitoring in wound care services, I think this would be a reasonable approach at this time. We will confirm with her dialysis service as whether a PICC line is required for vancomycin infusion whether can be given at the end of each dialysis run. Status: Acute (2) Cellulitis: Status: Acute Attestations Medical Necessity Statement*: Status post AKA with cellulitis Coding Level of Care Code Established Pt Acute Business Executive for Chg Fwd Patient Type Established History Problem Focused Medical Decision Making Moderate Complexity Diagnoses Status post above-knee amputation of right lower extremity Z89.611 Cellulitis L03.90 Time Spent (min) 25
[2020-02-18] MEDS: vancomycin 1,000 MG in sodium chloride 0.9% 250 ML 250 MG IV (11:15)
--- NOTE | 2020-02-18 11:36 | PC.NURSE ---
SURGERY CANCELED PER DR BRENNAN AFTER HE EVALUATED PT'S WOUND. WOUND REDRESSED BY MANDY TOLEDO RN. VANCOMYCIN STARTED.
--- NOTE | 2020-02-18 11:40 | SUR.PREOP ---
1055 Dr. Romero at bedside to inspect wound to right stump. Wound improving. Decision made to delay surgery at this time. Patient to receive Vancomycin 1 gram IVPB today [facility]. Pt to continue Vancomycin 1 gram IVPB after each dialysis for 2 weeks. Sol pharmacist to monitor and dose. Patient dialysis clinic, [facility], notified and Cha verified that Vancomycin can be infused after each dialysis session. Sol Caruso contacted and notified of changes and verified the pharmacy can dose the Vancomycin. Wound care services, [facility], notified of changes with wound vac not being placed. Follow-up appointment at Wound Care scheduled for February 21..
--- NOTE | 2020-02-18 13:05 | ANES.PREANE2 ---
Pre-Anesthetic Assessment Pre-Anesthetic Assessment: Height/Weight: Height 1.12 m Weight 71.214 kg Preop Diagnosis: Severe peripheral vascular disease, nonhealing right knee wound status post right BKA Proposed Procedure: Operation Date: 02/18/20 10:40 Proposed Procedures p suture removal,Debridement, wound vac(Not Applicable) - Pedro Hough MD Was Beta Edith taken within 24 hours: Yes Social: Social History: Alcohol Comment: quit smoking two months ago Exam: Pre-Anes Outpt Exam: alert, oriented x 3, clear to auscultation bilaterally and regular rate & rhythm Airway: Submandibular: WNL Cervical ROM: Other MP: 2 Dentition: False (hx ACDFF) History/ROS: No significant history except as noted and No significant complaints Pulmonary: Pulmonary: COPD and Sleep apnea Comments: O2 at night with CPAP CV/HEM: CV/HEM: HTN : : None reported Hepatic: Hepatic: None reported GI: GI: None reported Metabolic: Metabolic: DM and Thyroid Musc/skel: Musc/skel: None reported Neuropsych: Neuropsych: None reported Anesthetic Plan: ASA status: 3 Anesthesia: Anesthesia Evaluation and General Risk of > 500 ml blood loss (7ml/kg in children): No PFSH Anesthesia PFSH: Medical History (Updated 02/18/20 @ 11:15 by Pedro Hough MD) Arteriosclerotic heart disease Carotid stenosis Colon polyp Critical lower limb ischemia Diabetes mellitus Diverticulosis ESRD (end stage renal disease) on dialysis Essential hypertension Gastritis Normal colonoscopy NSTEMI (non-ST elevated myocardial infarction) Pulmonary hypertension PVD (peripheral vascular disease) Smoker Tricuspid valve regurgitation, nonrheumatic Surgical History (Updated 01/20/20 @ 06:54 by Pedro Hough MD) H/O carpal tunnel repair H/O total knee replacement History of arteriovenostomy for renal dialysis History of back surgery History of below knee amputation History of cataract extraction History of PTCA History of total hip replacement Hx of above knee amputation Social History Smoking and tobacco status: current every day smoker cigarettes Packs smoked per day: 0.5 Second hand smoke exposure: Yes Smoking risk assessment/counseling performed?: Yes Data Anesthesia Cardiac Studies: No Data to Display
[2020-02-22 07:45] LABS: Glucose Point of Care 161 mg/dL (70-110)
== END ==
PROVIDERS: PCP Internal Medicine; Visit Provider Thoracic Surgery (Cardiothoracic Vascular Surgery)
DX: Z53.9 Procedure and treatment not carried out, unspecified reason (principal); I73.9 Peripheral vascular disease, unspecified; Z89.611 Acquired absence of right leg above knee; L03.90 Cellulitis, unspecified; J44.9 Chronic obstructive pulmonary disease, unspecified; G47.30 Sleep apnea, unspecified; Z87.891 Personal history of nicotine dependence; E11.22 Type 2 diabetes mellitus with diabetic chronic kidney disease; I12.0 Hypertensive chronic kidney disease with stage 5 chronic kidney disease or end stage renal disease; N18.6 End stage renal disease
CPT/HCPCS: 12345; 36416; 82962; J3370; J7050

== ENCOUNTER 2020-02-22 08:48 | Outpatient (CLI) | payer MEDICARE, MEDICAID, SELFPAY | END 2020-02-22 08:49 | disposition home or self-care (01) | LOC: WOUND 08:50 | PROVIDERS: PCP Internal Medicine; Visit Provider Thoracic Surgery (Cardiothoracic Vascular Surgery) | DX: E11.622 Type 2 diabetes mellitus with other skin ulcer (principal); L97.819 Non-pressure chronic ulcer of other part of right lower leg with unspecified severity; Z89.611 Acquired absence of right leg above knee | CPT/HCPCS: 99213; G0463 ==

== ENCOUNTER 2020-02-29 08:42 | Outpatient (CLI) | payer MEDICARE, MEDICAID, SELFPAY | END 2020-02-29 08:43 | disposition home or self-care (01) | LOC: WOUND 08:43 | PROVIDERS: PCP Internal Medicine; Visit Provider Thoracic Surgery (Cardiothoracic Vascular Surgery) | DX: T81.31XA Disruption of external operation (surgical) wound, not elsewhere classified, initial encounter (principal); Y83.8 Other surgical procedures as the cause of abnormal reaction of the patient, or of later complication, without mention of misadventure at the time of the procedure; Z89.611 Acquired absence of right leg above knee | CPT/HCPCS: 11042 ==

== ENCOUNTER 2020-04-05 14:16 | Outpatient (CLI) | payer MEDICARE, MEDICAID, SELFPAY | END 2020-04-05 14:17 | disposition home or self-care (01) | PROVIDERS: PCP Internal Medicine; Visit Provider Thoracic Surgery (Cardiothoracic Vascular Surgery) | DX: E11.622 Type 2 diabetes mellitus with other skin ulcer (principal); L97.812 Non-pressure chronic ulcer of other part of right lower leg with fat layer exposed; Z89.611 Acquired absence of right leg above knee | CPT/HCPCS: 11042 ==

== ENCOUNTER 2020-04-11 14:02 | Outpatient (CLI) | payer MEDICARE, MEDICAID, SELFPAY | END 2020-04-11 14:03 | disposition home or self-care (01) | LOC: WOUND 14:04 | PROVIDERS: PCP Internal Medicine; Visit Provider Thoracic Surgery (Cardiothoracic Vascular Surgery) | DX: E11.622 Type 2 diabetes mellitus with other skin ulcer (principal); L97.812 Non-pressure chronic ulcer of other part of right lower leg with fat layer exposed; Z89.611 Acquired absence of right leg above knee | CPT/HCPCS: 11042; A6446 ==

== ENCOUNTER 2020-04-18 14:45 | Outpatient (CLI) | payer MEDICARE, MEDICAID, SELFPAY | END 2020-04-18 14:46 | disposition home or self-care (01) | LOC: WOUND 14:48 | PROVIDERS: PCP Internal Medicine; Visit Provider Thoracic Surgery (Cardiothoracic Vascular Surgery) | DX: E11.622 Type 2 diabetes mellitus with other skin ulcer (principal); L97.812 Non-pressure chronic ulcer of other part of right lower leg with fat layer exposed; Z89.611 Acquired absence of right leg above knee | CPT/HCPCS: 11042 ==

== ENCOUNTER 2020-04-25 14:32 | Outpatient (CLI) | payer MEDICARE, MEDICAID, SELFPAY | END 2020-04-25 14:33 | disposition home or self-care (01) | LOC: WOUND 14:35 | PROVIDERS: PCP Internal Medicine; Visit Provider Thoracic Surgery (Cardiothoracic Vascular Surgery) | DX: E11.622 Type 2 diabetes mellitus with other skin ulcer (principal); L97.812 Non-pressure chronic ulcer of other part of right lower leg with fat layer exposed; Z89.611 Acquired absence of right leg above knee | CPT/HCPCS: 11042 ==

== ENCOUNTER 2020-05-02 15:11 | Outpatient (CLI) | payer MEDICARE, MEDICAID, SELFPAY | END 2020-05-02 15:12 | disposition home or self-care (01) | LOC: WOUND 15:12 | PROVIDERS: PCP Internal Medicine; Visit Provider Thoracic Surgery (Cardiothoracic Vascular Surgery) | DX: E11.622 Type 2 diabetes mellitus with other skin ulcer (principal); L97.812 Non-pressure chronic ulcer of other part of right lower leg with fat layer exposed; Z89.611 Acquired absence of right leg above knee | CPT/HCPCS: 11042 ==

== ENCOUNTER 2020-05-09 15:03 | Outpatient (CLI) | payer MEDICARE, MEDICAID, SELFPAY | END 2020-05-09 15:04 | disposition home or self-care (01) | LOC: WOUND 15:08 | PROVIDERS: PCP Internal Medicine; Visit Provider Thoracic Surgery (Cardiothoracic Vascular Surgery) | DX: E11.622 Type 2 diabetes mellitus with other skin ulcer; L97.812 Non-pressure chronic ulcer of other part of right lower leg with fat layer exposed; Z89.611 Acquired absence of right leg above knee | CPT/HCPCS: 11042; A6446 ==

== ENCOUNTER 2020-05-16 14:59 | Outpatient (CLI) | payer MEDICARE, MEDICAID, SELFPAY | END 2020-05-16 15:00 | disposition home or self-care (01) | LOC: WOUND 15:00 | PROVIDERS: PCP Internal Medicine; Visit Provider Nurse Practitioner Family | DX: E11.622 Type 2 diabetes mellitus with other skin ulcer (principal); L97.812 Non-pressure chronic ulcer of other part of right lower leg with fat layer exposed; Z89.611 Acquired absence of right leg above knee | CPT/HCPCS: 11042 ==

== ENCOUNTER 2020-05-23 14:59 | Outpatient (CLI) | payer MEDICARE, MEDICAID, SELFPAY | END 2020-05-23 15:00 | disposition home or self-care (01) | LOC: WOUND 15:00 | PROVIDERS: PCP Internal Medicine; Visit Provider Thoracic Surgery (Cardiothoracic Vascular Surgery) | DX: E11.622 Type 2 diabetes mellitus with other skin ulcer (principal); L97.812 Non-pressure chronic ulcer of other part of right lower leg with fat layer exposed; Z89.611 Acquired absence of right leg above knee | CPT/HCPCS: 11042 ==

== ENCOUNTER 2020-05-30 14:47 | Outpatient (CLI) | payer MEDICARE, MEDICAID, SELFPAY | END 2020-05-30 14:48 | disposition home or self-care (01) | LOC: WOUND 14:48 | PROVIDERS: PCP Internal Medicine; Visit Provider Thoracic Surgery (Cardiothoracic Vascular Surgery) | DX: E11.622 Type 2 diabetes mellitus with other skin ulcer (principal); L97.812 Non-pressure chronic ulcer of other part of right lower leg with fat layer exposed; Z89.611 Acquired absence of right leg above knee | CPT/HCPCS: 11042 ==

== ENCOUNTER 2020-06-06 14:17 | Outpatient (CLI) | payer MEDICARE, MEDICAID, SELFPAY | END 2020-06-06 14:18 | disposition home or self-care (01) | LOC: WOUND 14:18 | PROVIDERS: PCP Internal Medicine; Visit Provider Thoracic Surgery (Cardiothoracic Vascular Surgery) | DX: E11.622 Type 2 diabetes mellitus with other skin ulcer (principal); L97.812 Non-pressure chronic ulcer of other part of right lower leg with fat layer exposed; Z89.611 Acquired absence of right leg above knee | CPT/HCPCS: 11042 ==

== ENCOUNTER 2020-06-13 14:04 | Outpatient (CLI) | payer MEDICARE, MEDICAID, SELFPAY | END 2020-06-13 14:05 | disposition home or self-care (01) | LOC: WOUND 14:05 | PROVIDERS: PCP Internal Medicine; Visit Provider Thoracic Surgery (Cardiothoracic Vascular Surgery) | DX: E11.622 Type 2 diabetes mellitus with other skin ulcer (principal); L97.812 Non-pressure chronic ulcer of other part of right lower leg with fat layer exposed; Z89.611 Acquired absence of right leg above knee | CPT/HCPCS: 11042; 97605 ==

== ENCOUNTER 2020-06-20 14:54 | Outpatient (CLI) | payer MEDICARE, MEDICAID, SELFPAY | END 2020-06-20 14:55 | disposition home or self-care (01) | LOC: WOUND 14:54 | PROVIDERS: PCP Internal Medicine; Visit Provider Thoracic Surgery (Cardiothoracic Vascular Surgery) | DX: E11.622 Type 2 diabetes mellitus with other skin ulcer (principal); L97.812 Non-pressure chronic ulcer of other part of right lower leg with fat layer exposed; Z89.611 Acquired absence of right leg above knee | CPT/HCPCS: 11042; 97605 ==

== ENCOUNTER 2020-06-27 13:11 | Outpatient (CLI) | payer MEDICARE, MEDICAID, SELFPAY | END 2020-06-27 13:12 | disposition home or self-care (01) | LOC: WOUND 13:12 | PROVIDERS: PCP Internal Medicine; Visit Provider Thoracic Surgery (Cardiothoracic Vascular Surgery) | DX: E11.622 Type 2 diabetes mellitus with other skin ulcer (principal); L97.812 Non-pressure chronic ulcer of other part of right lower leg with fat layer exposed; Z89.611 Acquired absence of right leg above knee | CPT/HCPCS: 11042 ==

== ENCOUNTER 2020-07-04 10:28 | Outpatient (CLI) | payer MEDICARE, MEDICAID, SELFPAY | END 2020-07-04 10:29 | disposition home or self-care (01) | LOC: WOUND 10:32 | PROVIDERS: PCP Internal Medicine; Visit Provider Thoracic Surgery (Cardiothoracic Vascular Surgery) | DX: E11.622 Type 2 diabetes mellitus with other skin ulcer (principal); L97.812 Non-pressure chronic ulcer of other part of right lower leg with fat layer exposed; Z89.611 Acquired absence of right leg above knee | CPT/HCPCS: 11042 ==

== ENCOUNTER 2020-07-11 09:13 | Outpatient (CLI) | payer MEDICARE, MEDICAID, SELFPAY | END 2020-07-11 09:14 | disposition home or self-care (01) | LOC: WOUND 09:14 | PROVIDERS: PCP Internal Medicine; Visit Provider Thoracic Surgery (Cardiothoracic Vascular Surgery) | DX: E11.622 Type 2 diabetes mellitus with other skin ulcer (principal); L97.812 Non-pressure chronic ulcer of other part of right lower leg with fat layer exposed; Z89.611 Acquired absence of right leg above knee | CPT/HCPCS: 11042 ==

== ENCOUNTER 2020-08-01 08:37 | Outpatient (CLI) | payer MEDICARE, MEDICAID, SELFPAY | END 2020-08-01 08:38 | disposition home or self-care (01) | LOC: WOUND 08:38 | PROVIDERS: PCP Internal Medicine; Visit Provider Thoracic Surgery (Cardiothoracic Vascular Surgery) | DX: E11.622 Type 2 diabetes mellitus with other skin ulcer (principal); L97.812 Non-pressure chronic ulcer of other part of right lower leg with fat layer exposed; Z89.611 Acquired absence of right leg above knee | CPT/HCPCS: 11042 ==

== ENCOUNTER 2020-08-08 09:14 | Outpatient (CLI) | payer MEDICARE, MEDICAID, SELFPAY | END 2020-08-08 09:15 | disposition home or self-care (01) | LOC: WOUND 09:16 | PROVIDERS: PCP Internal Medicine; Visit Provider Thoracic Surgery (Cardiothoracic Vascular Surgery) | DX: E11.622 Type 2 diabetes mellitus with other skin ulcer (principal); L97.812 Non-pressure chronic ulcer of other part of right lower leg with fat layer exposed; Z89.611 Acquired absence of right leg above knee | CPT/HCPCS: 11042 ==

== ENCOUNTER 2020-08-22 08:43 | Outpatient (CLI) | payer MEDICARE, MEDICAID, SELFPAY | END 2020-08-22 08:44 | disposition home or self-care (01) | LOC: WOUND 08:44 | PROVIDERS: PCP Internal Medicine; Visit Provider Nurse Practitioner Family | DX: E11.622 Type 2 diabetes mellitus with other skin ulcer (principal); L97.812 Non-pressure chronic ulcer of other part of right lower leg with fat layer exposed; Z89.611 Acquired absence of right leg above knee | CPT/HCPCS: 11042 ==

== ENCOUNTER 2020-08-30 08:13 | Outpatient (CLI) | payer MEDICARE, MEDICAID, SELFPAY | END 2020-08-30 08:14 | disposition home or self-care (01) | LOC: WOUND 08:14 | PROVIDERS: PCP Internal Medicine; Visit Provider Thoracic Surgery (Cardiothoracic Vascular Surgery) | DX: Z09 Encounter for follow-up examination after completed treatment for conditions other than malignant neoplasm (principal); Z89.611 Acquired absence of right leg above knee | CPT/HCPCS: 99211 ==

== ENCOUNTER 2020-09-11 06:13 | Emergency (ER) | payer MEDICARE, MEDICAID, SELFPAY ==
[2020-09-11 06:15] VITALS: BP 103/67; PULSE 110; RESP 18; TEMP 37.2; O2SAT 100; BMI 70.7
--- NOTE | 2020-09-11 06:23 | CTR_ITS ---
PROCEDURE INFORMATION: Exam: CT Cervical Spine Without Contrast Exam date and time: 09/11/2020 6:25 AM Age: 75 years old Clinical indication: Injury or trauma; Fall; Blunt trauma and concussion/head injury; Injury date: This morning TECHNIQUE: Imaging protocol: Computed tomography images of the cervical spine without contrast. Radiation optimization: All CT scans at this facility use at least one of these dose optimization techniques: automated exposure control; mA and/or kV adjustment per patient size (includes targeted exams where dose is matched to clinical indication); or iterative reconstruction. COMPARISON: CT Cervical Spine wo* [id number] 03/24/2018 3:50 PM RADIATION DOSE METRICS: Total DLP (mGy-cm): 838.13 FINDINGS: Bones/joints: Stable 4 mm anterolisthesis of C3 on 4. No acute fracture. Mild rotation of C1 on C2 probably due patient's head positioning. Discs/Spinal canal/Neural foramina: Multilevel degenerative changes including disc space narrowing, endplate spurring and facet hypertrophy. There is associated moderate to severe multilevel neural foraminal stenosis. Findings are most prominent at C3-C4, C4-C5, C5-C6 and C6-C7. Overall appearance is similar to previous examination. Soft tissues: Unremarkable. Lungs: No pneumothorax. CT/CT cervical spin wo con* [id number] IMPRESSION: No acute fracture. Radiation Dose CTDIVOL = (mGy): DLP = 838.13 (mGy-cm)
--- NOTE | 2020-09-11 06:23 | CTR_ITS ---
PROCEDURE INFORMATION: Exam: CT Head Without Contrast Exam date and time: 09/11/2020 6:25 AM Age: 75 years old Clinical indication: Injury or trauma; Fall; Blunt trauma (contusions or hematomas) and concussion/head injury; Without loss of consciousness; Injury date: This am; Additional info: Closed head injury TECHNIQUE: Imaging protocol: Computed tomography of the head without contrast. Radiation optimization: All CT scans at this facility use at least one of these dose optimization techniques: automated exposure control; mA and/or kV adjustment per patient size (includes targeted exams where dose is matched to clinical indication); or iterative reconstruction. COMPARISON: CT head wo con* [id number] 02/14/2019 10:17 AM RADIATION DOSE METRICS: Total DLP (mGy-cm): 747.15 FINDINGS: Brain: Irizarry-white matter differentiation is preserved. No edema, mass effect or midline shift. No acute intracranial hemorrhage. Chronic appearing basal ganglia lacunar infarcts.Periventricular and deep white matter hypodensities compatible with chronic microvascular ischemic changes. Cerebral ventricles: No ventriculomegaly. Bones/joints: No acute fracture. Paranasal sinuses: Visualized sinuses are unremarkable. No fluid levels. Mastoid air cells: No mastoid effusion. Soft tissues: Scalp hematoma at the vertex. CT/CT head wo con* [id number] IMPRESSION: No acute intracranial abnormality. Scalp hematoma at the vertex. Radiation Dose CTDIVOL = (mGy): DLP = 747.15 (mGy-cm)
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
[2020-09-11 07:26] LABS: Basophils % 0.4 %; Eosinophils # 0.3 10^3/uL (0.0-0.8); Eosinophils % 3.4 %; Hematocrit 34.6 % (37.0-47.0); Hemoglobin 10.6 g/dL (11.5-15.3); Lymphocytes # 0.5 10^3/uL (0.8-4.8); Mean Corpuscular HGB Conc 30.6 g/dL (30.0-36.0); Mean Corpuscular Hemoglobin 31.8 pg (28.0-34.0); Mean Corpuscular Volume 103.9 fL (81-99); Mean Platelet Volume 9.6 fL (7.4-10.4); Monocytes # 0.7 10^3/uL (0.2-0.9); Monocytes % 7.4 %; Neutrophils # 7.91 10^3/uL (1.8-7.7); Neutrophils % 83.6 %; Nucleated Red Blood Cells % 0 %; Platelet Count 157 10^3/cmm (130-400); Red Blood Count 3.33 10^6/uL (4.1-5.3); Red Cell Distribution Width 17.2 % (12.1-15.1); White Blood Count 9.5 10^3/uL (4.0-10.0)
[2020-09-11 07:44] LABS: Blood Urea Nitrogen 36 mg/dL (8-23); Calcium 8.5 mg/dL (8.5-10.5); Carbon Dioxide 30 mmol/L (22-29); Chloride 92 mmol/L (98-107); Glucose 151 mg/dL (65-115); Osmolality Calculated 293 mOsm/kg (285-295); Sodium 136 mmol/L (136-145)
[2020-09-11 08:06] LABS: Anion Gap 19.2 (5-19); Potassium 5.2 mmol/L (3.5-5.1)
[2020-09-11 09:27] VITALS: BP 140/57; PULSE 106; RESP 18; O2SAT 98
== END 2020-09-11 09:25 | disposition home or self-care (01) ==
PROVIDERS: Emergency Provider Family Medicine; PCP Internal Medicine
DX: E11.22 Type 2 diabetes mellitus with diabetic chronic kidney disease (principal); I12.0 Hypertensive chronic kidney disease with stage 5 chronic kidney disease or end stage renal disease; N18.6 End stage renal disease; Z99.2 Dependence on renal dialysis; Z79.4 Long term (current) use of insulin; I25.10 Atherosclerotic heart disease of native coronary artery without angina pectoris; I25.2 Old myocardial infarction; I73.9 Peripheral vascular disease, unspecified; V00.811A Fall from moving wheelchair (powered), initial encounter; F17.210 Nicotine dependence, cigarettes, uncomplicated; Z89.612 Acquired absence of left leg above knee; Z89.611 Acquired absence of right leg above knee
CPT/HCPCS: 12345; 70450; 72125; 80048; 85025; 99282; 99283

== ENCOUNTER 2020-11-03 05:46 | Emergency (ER) | payer MEDICARE, MEDICAID, SELFPAY ==
[2020-11-03 05:50] VITALS: BP 143/74; PULSE 114; RESP 16; TEMP 36.8; O2SAT 99; BMI 22.0
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
[2020-11-03] MEDS: tetanus-diphtheria tox (adult) 0.5 mL SDV IM (06:10)
[2020-11-03 06:21] LABS: Basophils # 0.1 10^3/uL (0.0-0.1); Basophils % 0.5 %; Eosinophils # 0.4 10^3/uL (0.0-0.8); Eosinophils % 2.7 %; Hematocrit 39.3 % (37.0-47.0); Hemoglobin 12.5 g/dL (11.5-15.3); Lymphocytes # 0.9 10^3/uL (0.8-4.8); Mean Corpuscular HGB Conc 31.8 g/dL (30.0-36.0); Mean Corpuscular Hemoglobin 31.2 pg (28.0-34.0); Mean Platelet Volume 9.1 fL (7.4-10.4); Monocytes # 0.9 10^3/uL (0.2-0.9); Monocytes % 6.3 %; Neutrophils # 11.16 10^3/uL (1.8-7.7); Neutrophils % 83.2 %; Nucleated Red Blood Cells % 0 %; Platelet Count 274 10^3/cmm (130-400); Red Blood Count 4.01 10^6/uL (4.1-5.3); Red Cell Distribution Width 15.1 % (12.1-15.1); White Blood Count 13.4 10^3/uL (4.0-10.0)
[2020-11-03] MEDS: neomycin-poly-bacitracin oint 0.9 gm Pkt 1 APPLIC TOPICAL (06:42)
[2020-11-03 06:58] LABS: Anion Gap 19.8 (5-19); Blood Urea Nitrogen 46 mg/dL (8-23); Calcium 9.5 mg/dL (8.5-10.5); Carbon Dioxide 26 mmol/L (22-29); Chloride 89 mmol/L (98-107); Glucose 177 mg/dL (65-115); Osmolality Calculated 288 mOsm/kg (285-295); Potassium 3.8 mmol/L (3.5-5.1); Sodium 131 mmol/L (136-145)
[2020-11-03] MEDS: HYDROcodone-acetaminophen 5-325 mg Tablet 1 TAB PO (09:37)
[2020-11-03 10:44] VITALS: RESP 16; TEMP 36.8; O2SAT 99
== END 2020-11-03 10:45 | disposition home or self-care (01) ==
PROVIDERS: Emergency Provider Family Medicine; PCP Internal Medicine
DX: S02.2XXA Fracture of nasal bones, initial encounter for closed fracture (principal); S01.81XA Laceration without foreign body of other part of head, initial encounter; V00.811A Fall from moving wheelchair (powered), initial encounter; E11.22 Type 2 diabetes mellitus with diabetic chronic kidney disease; I12.0 Hypertensive chronic kidney disease with stage 5 chronic kidney disease or end stage renal disease; N18.6 End stage renal disease; Z99.2 Dependence on renal dialysis; I25.2 Old myocardial infarction; Z89.612 Acquired absence of left leg above knee; Z89.611 Acquired absence of right leg above knee; F17.210 Nicotine dependence, cigarettes, uncomplicated; Z23 Encounter for immunization
CPT/HCPCS: 12013; 12345; 70450; 70486; 72125; 80048; 85025; 90471; 90714; 99281; 99283

== ENCOUNTER → 2021-05-23 10:58 | Outpatient (BNVA) | payer MEDICARE, MEDICAID, SELFPAY | PROVIDERS: PCP Internal Medicine; Visit Provider Internal Medicine Cardiovascular Disease | DX: R06.00 Dyspnea, unspecified (principal); I25.5 Ischemic cardiomyopathy; R07.9 Chest pain, unspecified; R00.0 Tachycardia, unspecified; I48.91 Unspecified atrial fibrillation; R53.1 Weakness; N18.9 Chronic kidney disease, unspecified; Z79.01 Long term (current) use of anticoagulants; I10 Essential (primary) hypertension | CPT/HCPCS: 80053; 84443; 85025; 85610 ==

== ENCOUNTER 2021-05-31 07:25 | Outpatient (CLI) | payer MEDICARE, MEDICAID, SELFPAY ==
--- NOTE | 2021-05-31 07:39 | US_ITS ---
WS: [id number] PELVIC ULTRASOUND HISTORY: ABNORMAL DISCHARGE COMPARISON: None available. Very limited evaluation of the pelvic structures. Patient refused to be scanned in the supine positio n on the stretcher. Patient was imaged upright in the wheelchair. There is a fluid structure in the central pelvis which could be the urinary bladder. If this is the u rinary bladder it has a thick wall and septation. I am not convinced this is actually the urinary kirk dder. This could be an ovarian mass. The surrounding structures are not identified. The uterus and ov santi are not identified. No free fluid. US/US pelvic complete* [id number] IMPRESSION: 1. Extremely limited evaluation of the pelvic structures. This is a nondiagnos tic examination to evaluate the pelvic structures and the endometrium. 2. Fluid structure in the central pelvis does not have the appearance of the u rinary bladder. If patient is unable to undergo ultrasound imaging of the pelvi s and transvaginal imaging recommend CT evaluation with IV and oral contrast.
== END 2021-05-31 07:26 | disposition home or self-care (01) ==
LOC: RAD 07:31
PROVIDERS: PCP Internal Medicine; Visit Provider Internal Medicine
DX: N89.8 Other specified noninflammatory disorders of vagina (principal)
CPT/HCPCS: 76856

== ENCOUNTER 2021-06-01 16:27 | Emergency (ER) | payer MEDICARE, MEDICAID, SELFPAY ==
[2021-06-01 16:32] VITALS: BP 102/47; PULSE 75; RESP 18; TEMP 37.1; O2SAT 95; BMI 22.8
--- NOTE | 2021-06-01 16:33 | XRR_ITS ---
PROCEDURE INFORMATION: Exam: XR Chest Exam date and time: 06/01/2021 4:33 PM Age: 75 years old Clinical indication: Dyspnea; Additional info: Dyspnea/cough TECHNIQUE: Imaging protocol: XR of the chest. Views: 1 view. COMPARISON: CR XR chest 1V portable [id number] 10/28/2019 10:02 AM FINDINGS: Lungs: Unremarkable. No consolidation. Pleural spaces: Unremarkable. No pleural effusion. No pneumothorax. Heart/Mediastinum: Unremarkable. No cardiomegaly. Bones/joints: Fracture right 5th and 6 posterior ribs XR/XR chest 1V portable [id number] IMPRESSION: 1. No acute findings. 2. Chronic fracture right 5th and 6th ribs
--- NOTE | 2021-06-01 17:19 | W.ED.GENADLT ---
Documented by User: Esau Paredes DO 06/08/21 06:42 HPI - General Adult General: Stated complaint: SEVERE ABD PAIN, INCREASED CONFUSION Time Seen by Provider: 06/01/21 16:32 History of Present Illness: HPI narrative: 75-year-old female presents emergency room from [place]. She was sent here because of abnormal labs. She had left arm pain after dialysis. She not having any left arm pain now she denies any difficulty breathing no chest pain no abdominal pain she is completely unaware of why she is here other than she was told she had abnormal labs and need to come to the emergency room to have it evaluated. She is gotten all her regular dialysis without any difficulty this week. Relieving factors: none Exacerbating factors: none Associated symptoms: Deny chest pain, confusion, cough, diaphoresis, decreased appetite, dyspnea, fevers/chills, headache(s), malaise, nausea, rash, palpitations, seizures, short of breath, syncope, vomiting or weakness Treatments prior to arrival: none Review of Systems Const: Denies: malaise or diaphoresis ENMT: Denies: throat pain, ear or mastoid pain, nasal discharge or nasal congestion Card: Denies: chest pain, palpitations or syncope Resp: Denies: dyspnea GI: Denies: nausea or vomiting : Denies: flank pain, difficulty voiding, dysuria, urinary frequency or urinary urgency Skin/Breast: Denies: rash Neuro: Denies: headache(s) or confusion [facility] ED PFSH: Medical History Arteriosclerotic heart disease Carotid stenosis Colon polyp Critical lower limb ischemia Diabetes mellitus Diverticulosis ESRD (end stage renal disease) on dialysis Essential hypertension Gastritis Normal colonoscopy NSTEMI (non-ST elevated myocardial infarction) Pulmonary hypertension PVD (peripheral vascular disease) Smoker Tricuspid valve regurgitation, nonrheumatic Surgical History H/O carpal tunnel repair H/O total knee replacement History of arteriovenostomy for renal dialysis History of back surgery History of below knee amputation History of cataract extraction History of PTCA History of total hip replacement Hx of above knee amputation Family History Brother Bleeding disorder Clotting disorder Diabetes Mother Bleeding disorder Clotting disorder CAD (coronary artery disease) Cancer Diabetes Lung disease Sister Bleeding disorder Clotting disorder Father Dementia Other Suicide attempt Denies family history of Chronic kidney disease (CKD) Suicide Anesthesia complication Stroke Social History Smoking and tobacco status: current every day smoker cigarettes Packs smoked per day: 0.5 Second hand smoke exposure: Yes Smoking risk assessment/counseling performed?: Yes Physical Exam Const: COMMON NORMALS: no acute distress GENERAL APPEARANCE: cooperative and comfortable ORIENTATION/CONSCIOUSNESS: Yes awake, Yes oriented to person, Yes oriented to place and Yes oriented to time HENMT: COMMON NORMALS: normocephalic, atraumatic and hearing grossly normal bilaterally HEAD & SCALP: normocephalic and atraumatic Neck/C-Spine: COMMON NORMALS: no JVD Resp: COMMON NORMALS: normal respiratory effort, No retractions, No use of accessory muscles and clear to auscultation bilaterally AUSCULTATION: clear to auscultation bilaterally Cardio: COMMON NORMALS: no JVD, regular rate, regular rhythm and No murmurs present (Cardio) RATE: regular rate RHYTHM: regular rhythm GI: COMMON NORMALS: Soft to palpation and No hepatosplenomegaly present AUSCULTATION: Yes normoactive bowel sounds PALPATION: Yes Soft to palpation, No Tenderness to palpation present (GI), No Guarding due to palpation present (GI) and Yes No hepatosplenomegaly present Extremity: NARRATIVE EXTREMITY EXAM: Bilateral [id number] amputations no abnormalities at the stumps. Neuro: SENSORIUM/ORIENTATION: Yes oriented to person, Yes oriented to place and Yes oriented to time Course Vital Signs: Vital signs: Vital Signs Temperature 97.6 F 06/01/21 19:16 Pulse Rate 78 06/02/21 02:40 Respiratory Rate 20 H 06/02/21 02:40 Blood Pressure 106/59 06/02/21 02:40 Pulse Oximetry 98 06/02/21 02:40 MDM - General Adult MDM Narrative: Medical decision making narrative: Care turned over to Dr. Tilley at change of shift see his notes for final diagnosis and disposition. Lab Data: Labs: Lab Results 06/01/21 06/01/21 06/01/21 Range/Units 17:33 17:33 17:33 WBC 14.4 H (4.0-10.0) 10^3/ uL RBC 3.28 L (4.1-5.3) 10^6/u L Hgb 9.8 L (11.5-15.3) g/dL Hct 34.0 L (37.0-47.0) % MCV 103.7 H (81-99) fl MCH 29.9 (28.0-34.0) pg MCHC 28.8 L (30.0-36.0) g/dL RDW 21.8 H (12.1-15.1) % Plt Count 144 (130-400) 10^3/c mm MPV 10.6 H (7.4-10.4) fL Neut % (Auto) 86.7 % Lymph % (Auto) 6.2 % [place] % (Auto) 5.5 % Eos % (Auto) 0.8 % Baso % (Auto) 0.2 % Neut # (Auto) 12.45 H (1.8-7.7) 10^3/u L Lymph # (Auto) 0.9 (0.8-4.8) 10^3/u L [place] # (Auto) 0.8 (0.2-0.9) 10^3/u L Eos # (Auto) 0.1 (0.0-0.8) 10^3/u L Baso # (Auto) 0.0 (0.0-0.1) 10^3/u L Nucleated RBC % (a uto) 0 % Nucleated RBCs # 0.0 /100WBC Sodium 127 L (136-145) mmol/L Potassium 4.3 (3.5-5.1) mmol/L Chloride 87 L (98-107) mmol/L Carbon Dioxide 21 L (22-29) mmol/L Anion Gap 23.3 H (5-19) BUN 29 H (8-23) mg/dL Creatinine 2.7 H (0.5-0.9) mg/dL GFR Calculation Not Reportable Glucose 146 H (65-115) mg/dL Calculated Osmolal ity 272 L (285-295) mOsm/k g Lactic Acid 3.1 H (0.5-2.2) mmol/L Lactic Acid (Sepsi s) (0.5-2.2) mmol/L Calcium 7.8 L (8.5-10.5) mg/dL Total Bilirubin 0.6 (0.15-1.2) mg/dL AST 22 (0-32) U/L ALT 14 (0-33) U/L Alkaline Phosphata se 148 H (35-105) IU/L Creatine Kinase 45 (26-192) U/L Total Protein 5.9 L (6.6-8.7) g/dL Albumin 1.9 L (3.5-5.2) g/dL Globulin 4.0 (1.3-4.6) g/dL Lipase 16 (13-60) U/L Urine Color (Yellow) Urine Appearance (CLEAR) Urine pH (5-7) Ur Specific Gravit y (1.005-1.030) Urine Protein (Negative) Urine Glucose (UA) (Normal) Urine Ketones (Negative) Urine Blood (Negative) Urine Nitrate (Negative) Urine Bilirubin (Negative) Urine Urobilinogen (Negative) mg/dL Ur Leukocyte Kim ase (Negative) Urine RBC (0-2) /hpf Urine WBC (0-5) /hpf Ur Squamous Epith Cells (0-5) /hpf Amorphous Sediment /hpf Urine Bacteria (NONE) /hpf Urine Mucus /hpf 06/01/21 06/01/21 Range/Units 20:32 22:00 WBC (4.0-10.0) 10^3/ uL RBC (4.1-5.3) 10^6/u L Hgb (11.5-15.3) g/dL Hct (37.0-47.0) % MCV (81-99) fl MCH (28.0-34.0) pg MCHC (30.0-36.0) g/dL RDW (12.1-15.1) % Plt Count (130-400) 10^3/c mm MPV (7.4-10.4) fL Neut % (Auto) % Lymph % (Auto) % [place] % (Auto) % Eos % (Auto) % Baso % (Auto) % Neut # (Auto) (1.8-7.7) 10^3/u L Lymph # (Auto) (0.8-4.8) 10^3/u L [place] # (Auto) (0.2-0.9) 10^3/u L Eos # (Auto) (0.0-0.8) 10^3/u L Baso # (Auto) (0.0-0.1) 10^3/u L Nucleated RBC % (a uto) % Nucleated RBCs # /100WBC Sodium (136-145) mmol/L Potassium (3.5-5.1) mmol/L Chloride (98-107) mmol/L Carbon Dioxide (22-29) mmol/L Anion Gap (5-19) BUN (8-23) mg/dL Creatinine (0.5-0.9) mg/dL GFR Calculation Glucose (65-115) mg/dL Calculated Osmolal ity (285-295) mOsm/k g Lactic Acid (0.5-2.2) mmol/L Lactic Acid (Sepsi s) 0.4 L (0.5-2.2) mmol/L Calcium (8.5-10.5) mg/dL Total Bilirubin (0.15-1.2) mg/dL AST (0-32) U/L ALT (0-33) U/L Alkaline Phosphata se (35-105) IU/L Creatine Kinase (26-192) U/L Total Protein (6.6-8.7) g/dL Albumin (3.5-5.2) g/dL Globulin (1.3-4.6) g/dL Lipase (13-60) U/L Urine Color Other (Yellow) Urine Appearance Cloudy (CLEAR) Urine pH 6 (5-7) Ur Specific Gravit y 1.020 (1.005-1.030) Urine Protein 1+ H (Negative) Urine Glucose (UA) Norm (Normal) Urine Ketones Negative (Negative) Urine Blood 3+ H (Negative) Urine Nitrate Negative (Negative) Urine Bilirubin Neg (Negative) Urine Urobilinogen Norm (Negative) mg/dL Ur Leukocyte Kim ase 2+ H (Negative) Urine RBC >100 H (0-2) /hpf Urine WBC Too numerous to c nt H (0-5) /hpf Ur Squamous Epith Cells 0-4 H (0-5) /hpf Amorphous Sediment 4+ /hpf Urine Bacteria 4+ H (NONE) /hpf Urine Mucus 2+ /hpf Discharge Plan Discharge Patient Disposition: Home Clinical Impression: ESRD (end stage renal disease) on dialysis Urinary tract infection Qualifiers: Urinary tract infection type: acute cystitis Hematuria presence: with hematuria Qualified Code(s): N30.01 - Acute cystitis with hematuria Anemia Qualifiers: Anemia type: iron deficiency Iron deficiency anemia type: chronic blood loss Qualified Code(s): D50.0 - Iron deficiency anemia secondary to blood loss (chronic) Condition: Stable Prescriptions: New Cipro 500 mg tablet 500 mg PO .mwf Qty: 7 RF: 0 Discontinued Eliquis 5 mg tablet 5 mg PO BID@0900,2100 RF: 0 No Action Fiber Gummies 2 gram tablet,chewable 2 gm PO BID@1099,2099 RF: 0 hydroxyzine HCl 25 mg tablet 25 mg PO BID PRN (Reason: Itching) RF: 0 gabapentin 300 mg capsule 300 mg PO DAILY@1100 RF: 0 diclofenac sodium 1 % gel 2 g topical BID@08,1999 PRN (Reason: UNKNOWN) RF: 0 Flagyl 500 mg Tablet 500 mg PO BID@08,1999 RF: 0 Milk of Magnesia 400 mg/5 mL Suspension 400 mg PO DAILY PRN (Reason: Constipation) RF: 0 Novolog U-100 Insulin aspart 100 unit/mL Solution 6 unit SUBCUT TID@0630,1130,1630 RF: 0 Enema Disposable 19-7 gram/118 mL Enema 118 ml MD DAILY PRN (Reason: Constipation) RF: 0 Preparation H 0.25-14-74.9 % Ointment See Rx Instructions .ROUTE .COMPLEX RF: 0 metoprolol tartrate 25 mg tablet 25 mg PO BID@0900,2100 RF: 0 acetaminophen [Tylenol] 325 mg Tablet 650 mg PO QID MDD SEE PHARMACY COMMENT PRN (Reason: Pain) RF: 0 hydrocodone-acetaminophen 5-325 mg Tablet 2 tab PO Q4H PRN (Reason: Pain) RF: 0 ondansetron HCl [Zofran] 4 mg Tablet 4 mg PO Q6H PRN (Reason: NAUSEA) RF: 0 bisacodyl [Dulcolax (bisacodyl)] 10 mg Suppository 10 mg MD DAILY PRN (Reason: CONSTIPATION) RF: 0 Tresiba FlexTouch U-100 100 unit/mL (3 mL) Insulin Pen 10 unit SUBCUT DAILY RF: 0 albuterol sulfate 2.5 mg /3 mL (0.083 %) Solution For Nebulization 2.5 mg INHALATION QID PRN (Reason: Shortness Of Breath Or Wheezing) RF: 0 nitroglycerin [Nitrostat] 0.4 mg Tablet, Sublingual 0.4 mg SUBLINGUAL Q5M PRN (Reason: Chest Pain) RF: 0 atorvastatin [Lipitor] 40 mg Tablet 40 mg PO BEDTIME@2100 RF: 0 loperamide [Imodium A-D] 2 mg Capsule 2 mg PO Q4H PRN (Reason: Diarrhea) RF: 0 citalopram [Celexa] 20 mg Tablet 20 mg PO DAILY@1100 RF: 0 pantoprazole [Protonix] 40 mg Tablet,Delayed Release (Dr/Ec) 40 mg PO DAILY@1800 RF: 0 calcium carbonate [Tums] 200 mg calcium (500 mg) Tablet,Chewable 200 mg PO TID@,, RF: 0 Discharge Orders: Discharge ED (Routine); Ordered 06/01/21 Ordered By: Gio Tilley Referrals: Boris Chaudhary DO [Primary Care Provider] - 1-3 days Discharge Diet: Usual diet Discharge Activity: Increase activity as tolerated Patient Instructions: Rectal Bleeding (ED), Urinary Tract Infection in Women (ED), Anemia (ED) Activity Restrictions/Additional Instructions: Stop the apixaban until cleared by your doctor to restart. Check CBC on Friday. Antibiotics as directed. Return for worsening pain, worsening bleeding rectally, fever greater than 100 despite 2-3 doses of antibiotics, any other concerning symptoms. 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 Detailed Documented by User: Gio Tilley DO 06/02/21 01:28 HPI - General Adult General: Stated complaint: SEVERE ABD PAIN, INCREASED CONFUSION Time Seen by Provider: 06/01/21 16:32 PFSH ED PFSH: Medical History Arteriosclerotic heart disease Carotid stenosis Colon polyp Critical lower limb ischemia Diabetes mellitus Diverticulosis ESRD (end stage renal disease) on dialysis Essential hypertension Gastritis Normal colonoscopy NSTEMI (non-ST elevated myocardial infarction) Pulmonary hypertension PVD (peripheral vascular disease) Smoker Tricuspid valve regurgitation, nonrheumatic Surgical History H/O carpal tunnel repair H/O total knee replacement History of arteriovenostomy for renal dialysis History of back surgery History of below knee amputation History of cataract extraction History of PTCA History of total hip replacement Hx of above knee amputation Family History Brother Bleeding disorder Clotting disorder Diabetes Mother Bleeding disorder Clotting disorder CAD (coronary artery disease) Cancer Diabetes Lung disease Sister Bleeding disorder Clotting disorder Father Dementia Other Suicide attempt Denies family history of Chronic kidney disease (CKD) Suicide Anesthesia complication Stroke Social History Smoking and tobacco status: current every day smoker cigarettes Packs smoked per day: 0.5 Second hand smoke exposure: Yes Smoking risk assessment/counseling performed?: Yes Course Vital Signs: Vital signs: Vital Signs Temperature 97.6 F 06/01/21 19:16 Pulse Rate 78 06/02/21 02:40 Respiratory Rate 20 H 06/02/21 02:40 Blood Pressure 106/59 06/02/21 02:40 Pulse Oximetry 98 06/02/21 02:40 MDM - General Adult MDM Narrative: Medical decision making narrative: 75-year-old female checked out to me at shift change by Dr. Paredes. This lady evidently had some abdominal pain earlier today. She is not complaining of any pain currently. Her hemoglobin is 9.8. Its been that low before, but she reportedly had a heme positive stool. She has had no bloody stools since she has been here. She is status post dialysis today. Her vital signs have been stable. She is on apixaban. She only urinates occasionally, and a cath urine today shows significant pyuria, likely from stagnation more so than active infection, but we will treat. [facility] living. We will stop her apixaban for now, until blood counts stabilize. Lab Data: Labs: Lab Results 09/03/21 09/03/21 09/03/21 Range/Units 17:33 17:33 17:33 WBC 14.4 H (4.0-10.0) 10^3/ uL RBC 3.28 L (4.1-5.3) 10^6/u L Hgb 9.8 L (11.5-15.3) g/dL Hct 34.0 L (37.0-47.0) % MCV 103.7 H (81-99) fl MCH 29.9 (28.0-34.0) pg MCHC 28.8 L (30.0-36.0) g/dL RDW 21.8 H (12.1-15.1) % Plt Count 144 (130-400) 10^3/c mm MPV 10.6 H (7.4-10.4) fL Neut % (Auto) 86.7 % Lymph % (Auto) 6.2 % [place] % (Auto) 5.5 % Eos % (Auto) 0.8 % Baso % (Auto) 0.2 % Neut # (Auto) 12.45 H (1.8-7.7) 10^3/u L Lymph # (Auto) 0.9 (0.8-4.8) 10^3/u L [place] # (Auto) 0.8 (0.2-0.9) 10^3/u L Eos # (Auto) 0.1 (0.0-0.8) 10^3/u L Baso # (Auto) 0.0 (0.0-0.1) 10^3/u L Nucleated RBC % (a uto) 0 % Nucleated RBCs # 0.0 /100WBC Sodium 127 L (136-145) mmol/L Potassium 4.3 (3.5-5.1) mmol/L Chloride 87 L (98-107) mmol/L Carbon Dioxide 21 L (22-29) mmol/L Anion Gap 23.3 H (5-19) BUN 29 H (8-23) mg/dL Creatinine 2.7 H (0.5-0.9) mg/dL GFR Calculation Not Reportable Glucose 146 H (65-115) mg/dL Calculated Osmolal ity 272 L (285-295) mOsm/k g Lactic Acid 3.1 H (0.5-2.2) mmol/L Lactic Acid (Sepsi s) (0.5-2.2) mmol/L Calcium 7.8 L (8.5-10.5) mg/dL Total Bilirubin 0.6 (0.15-1.2) mg/dL AST 22 (0-32) U/L ALT 14 (0-33) U/L Alkaline Phosphata se 148 H (35-105) IU/L Creatine Kinase 45 (26-192) U/L Total Protein 5.9 L (6.6-8.7) g/dL Albumin 1.9 L (3.5-5.2) g/dL Globulin 4.0 (1.3-4.6) g/dL Lipase 16 (13-60) U/L Urine Color (Yellow) Urine Appearance (CLEAR) Urine pH (5-7) Ur Specific Gravit y (1.005-1.030) Urine Protein (Negative) Urine Glucose (UA) (Normal) Urine Ketones (Negative) Urine Blood (Negative) Urine Nitrate (Negative) Urine Bilirubin (Negative) Urine Urobilinogen (Negative) mg/dL Ur Leukocyte Kim ase (Negative) Urine RBC (0-2) /hpf Urine WBC (0-5) /hpf Ur Squamous Epith Cells (0-5) /hpf Amorphous Sediment /hpf Urine Bacteria (NONE) /hpf Urine Mucus /hpf 06/01/21 06/01/21 Range/Units 20:32 22:00 WBC (4.0-10.0) 10^3/ uL RBC (4.1-5.3) 10^6/u L Hgb (11.5-15.3) g/dL Hct (37.0-47.0) % MCV (81-99) fl MCH (28.0-34.0) pg MCHC (30.0-36.0) g/dL RDW (12.1-15.1) % Plt Count (130-400) 10^3/c mm MPV (7.4-10.4) fL Neut % (Auto) % Lymph % (Auto) % [place] % (Auto) % Eos % (Auto) % Baso % (Auto) % Neut # (Auto) (1.8-7.7) 10^3/u L Lymph # (Auto) (0.8-4.8) 10^3/u L [place] # (Auto) (0.2-0.9) 10^3/u L Eos # (Auto) (0.0-0.8) 10^3/u L Baso # (Auto) (0.0-0.1) 10^3/u L Nucleated RBC % (a uto) % Nucleated RBCs # /100WBC Sodium (136-145) mmol/L Potassium (3.5-5.1) mmol/L Chloride (98-107) mmol/L Carbon Dioxide (22-29) mmol/L Anion Gap (5-19) BUN (8-23) mg/dL Creatinine (0.5-0.9) mg/dL GFR Calculation Glucose (65-115) mg/dL Calculated Osmolal ity (285-295) mOsm/k g Lactic Acid (0.5-2.2) mmol/L Lactic Acid (Sepsi s) 0.4 L (0.5-2.2) mmol/L Calcium (8.5-10.5) mg/dL Total Bilirubin (0.15-1.2) mg/dL AST (0-32) U/L ALT (0-33) U/L Alkaline Phosphata se (35-105) IU/L Creatine Kinase (26-192) U/L Total Protein (6.6-8.7) g/dL Albumin (3.5-5.2) g/dL Globulin (1.3-4.6) g/dL Lipase (13-60) U/L Urine Color Other (Yellow) Urine Appearance Cloudy (CLEAR) Urine pH 6 (5-7) Ur Specific Gravit y 1.020 (1.005-1.030) Urine Protein 1+ H (Negative) Urine Glucose (UA) Norm (Normal) Urine Ketones Negative (Negative) Urine Blood 3+ H (Negative) Urine Nitrate Negative (Negative) Urine Bilirubin Neg (Negative) Urine Urobilinogen Norm (Negative) mg/dL Ur Leukocyte Kim ase 2+ H (Negative) Urine RBC >100 H (0-2) /hpf Urine WBC Too numerous to c nt H (0-5) /hpf Ur Squamous Epith Cells 0-4 H (0-5) /hpf Amorphous Sediment 4+ /hpf Urine Bacteria 4+ H (NONE) /hpf Urine Mucus 2+ /hpf Discharge Plan Discharge Patient Disposition: Home Clinical Impression: ESRD (end stage renal disease) on dialysis Urinary tract infection Qualifiers: Urinary tract infection type: acute cystitis Hematuria presence: with hematuria Qualified Code(s): N30.01 - Acute cystitis with hematuria Anemia Qualifiers: Anemia type: iron deficiency Iron deficiency anemia type: chronic blood loss Qualified Code(s): D50.0 - Iron deficiency anemia secondary to blood loss (chronic) Condition: Stable Prescriptions: New Cipro 500 mg tablet 500 mg PO .mwf Qty: 7 RF: 0 Discontinued Eliquis 5 mg tablet 5 mg PO BID@899,2099 RF: 0 No Action Fiber Gummies 2 gram tablet,chewable 2 gm PO BID@1099,2099 RF: 0 hydroxyzine HCl 25 mg tablet 25 mg PO BID PRN (Reason: Itching) RF: 0 gabapentin 300 mg capsule 300 mg PO DAILY@1099 RF: 0 diclofenac sodium 1 % gel 2 g topical BID@799,1999 PRN (Reason: UNKNOWN) RF: 0 Flagyl 500 mg Tablet 500 mg PO BID@799,1999 RF: 0 Milk of Magnesia 400 mg/5 mL Suspension 400 mg PO DAILY PRN (Reason: Constipation) RF: 0 Novolog U-100 Insulin aspart 100 unit/mL Solution 6 unit SUBCUT TID@0630,1130,1630 RF: 0 Enema Disposable 19-7 gram/118 mL Enema 118 ml MD DAILY PRN (Reason: Constipation) RF: 0 Preparation H 0.25-14-74.9 % Ointment See Rx Instructions .ROUTE .COMPLEX RF: 0 metoprolol tartrate 25 mg tablet 25 mg PO BID@899,2099 RF: 0 acetaminophen [Tylenol] 325 mg Tablet 650 mg PO QID MDD SEE PHARMACY COMMENT PRN (Reason: Pain) RF: 0 hydrocodone-acetaminophen 5-325 mg Tablet 2 tab PO Q4H PRN (Reason: Pain) RF: 0 ondansetron HCl [Zofran] 4 mg Tablet 4 mg PO Q6H PRN (Reason: NAUSEA) RF: 0 bisacodyl [Dulcolax (bisacodyl)] 10 mg Suppository 10 mg MD DAILY PRN (Reason: CONSTIPATION) RF: 0 Tresiba FlexTouch U-100 100 unit/mL (3 mL) Insulin Pen 10 unit SUBCUT DAILY RF: 0 albuterol sulfate 2.5 mg /3 mL (0.083 %) Solution For Nebulization 2.5 mg INHALATION QID PRN (Reason: Shortness Of Breath Or Wheezing) RF: 0 nitroglycerin [Nitrostat] 0.4 mg Tablet, Sublingual 0.4 mg SUBLINGUAL Q5M PRN (Reason: Chest Pain) RF: 0 atorvastatin [Lipitor] 40 mg Tablet 40 mg PO BEDTIME@2100 RF: 0 loperamide [Imodium A-D] 2 mg Capsule 2 mg PO Q4H PRN (Reason: Diarrhea) RF: 0 citalopram [Celexa] 20 mg Tablet 20 mg PO DAILY@1100 RF: 0 pantoprazole [Protonix] 40 mg Tablet,Delayed Release (Dr/Ec) 40 mg PO DAILY@1800 RF: 0 calcium carbonate [Tums] 200 mg calcium (500 mg) Tablet,Chewable 200 mg PO TID@,, RF: 0 Discharge Orders: Discharge ED (Routine); Ordered 06/01/21 Ordered By: Gio Tilley Referrals: Boris Chaudhary DO [Primary Care Provider] - 1-3 days Discharge Diet: Usual diet Discharge Activity: Increase activity as tolerated Patient Instructions: Rectal Bleeding (ED), Urinary Tract Infection in Women (ED), Anemia (ED) Activity Restrictions/Additional Instructions: Stop the apixaban until cleared by your doctor to restart. Check CBC on Friday. Antibiotics as directed. Return for worsening pain, worsening bleeding rectally, fever greater than 100 despite 2-3 doses of antibiotics, any other concerning symptoms. Coding Level of Care Code ED Supervisor [employer] for [employer] Fwd Exam Detailed
[2021-06-01 17:38] VITALS: BP 108/43; PULSE 86; RESP 16; O2SAT 98
[2021-06-01 17:49] LABS: Basophils % 0.2 %; Eosinophils # 0.1 10^3/uL (0.0-0.8); Eosinophils % 0.8 %; Hemoglobin 9.8 g/dL (11.5-15.3); Lymphocytes # 0.9 10^3/uL (0.8-4.8); Lymphocytes % 6.2 %; Mean Corpuscular HGB Conc 28.8 g/dL (30.0-36.0); Mean Corpuscular Hemoglobin 29.9 pg (28.0-34.0); Mean Corpuscular Volume 103.7 fl (81-99); Mean Platelet Volume 10.6 fL (7.4-10.4); Monocytes # 0.8 10^3/uL (0.2-0.9); Monocytes % 5.5 %; Neutrophils # 12.45 10^3/uL (1.8-7.7); Neutrophils % 86.7 %; Nucleated Red Blood Cells % 0 %; Platelet Count 144 10^3/cmm (130-400); Red Blood Count 3.28 10^6/uL (4.1-5.3); Red Cell Distribution Width 21.8 % (12.1-15.1); White Blood Count 14.4 10^3/uL (4.0-10.0)
[2021-06-01 18:29] LABS: Lactic Sepsis W/Reflex 3.1 mmol/L (0.5-2.2)
[2021-06-01 18:54] LABS: Alanine Aminotransferase 14 U/L (0-33); Albumin Level 1.9 g/dL (3.5-5.2); Alkaline Phosphatase 148 IU/L (35-105); Blood Urea Nitrogen 29 mg/dL (8-23); Calcium 7.8 mg/dL (8.5-10.5); Carbon Dioxide 21 mmol/L (22-29); Chloride 87 mmol/L (98-107); Creatine Phosphokinase 45 U/L (26-192); Glucose 146 mg/dL (65-115); Lipase 16 U/L (13-60); Osmolality Calculated 272 mOsm/kg (285-295); Sodium 127 mmol/L (136-145); Total Bilirubin 0.6 mg/dL (0.15-1.2); Total Protein 5.9 g/dL (6.6-8.7)
[2021-06-01 19:04] LABS: Anion Gap 23.3 (5-19); Aspartate Amino Transferase 22 U/L (0-32); Potassium 4.3 mmol/L (3.5-5.1)
[2021-06-01 19:16] VITALS: BP 97/58; PULSE 87; RESP 20; TEMP 36.4; O2SAT 96
--- NOTE | 2021-06-01 19:26 | CTR_ITS ---
PROCEDURE INFORMATION: Exam: CT Abdomen And Pelvis Without Contrast Exam date and time: 06/01/2021 7:26 PM Age: 75 years old Clinical indication: Abdominal pain; Localized; Right lower quadrant (rlq); Prior surgery; Surgery date: 6+ months; Surgery type: Choley; Additional info: Rlq pain. Heme + stool TECHNIQUE: Imaging protocol: Computed tomography of the abdomen and pelvis without contrast. Radiation optimization: All CT scans at this facility use at least one of these dose optimization techniques: automated exposure control; mA and/or kV adjustment per patient size (includes targeted exams where dose is matched to clinical indication); or iterative reconstruction. COMPARISON: CT abdomen pelvis wo con [id number] 02/14/2019 5:31 PM RADIATION DOSE METRICS: Total DLP (mGy-cm): 1697.74 FINDINGS: Liver: No mass. Gallbladder and bile ducts: Status post cholecystectomy. Pancreas: No ductal dilation. Spleen: No splenomegaly. Adrenal glands: Normal. No mass. Kidneys and ureters: No hydronephrosis. Stomach and bowel: Scattered colonic diverticulosis without findings of diverticulitis. Appendix: No evidence of appendicitis. Intraperitoneal space: No free air. No significant fluid collection. Vasculature: Diffuse atherosclerotic changes of the aorta and its branches. Lymph nodes: No enlarged lymph nodes. Urinary bladder: Fluid-filled structure with septations noted anterior to the uterus likely representing a distended thickened urinary bladder. Reproductive: The ovaries are not identified. Mild endometrial thickening and/or fluid. Bones/joints: Postsurgical changes of the right femur. Bones are osteopenic. Degenerative changes of the lumbar spine. Soft tissues: Unremarkable. CT/CT abdomen pelvis con [id number] IMPRESSION: 1. Fluid-filled structure with septations noted anterior to the uterus likely representing a distended thickened urinary bladder. Follow-up with urology and urinalysis may be helpful as well as CT urography. 2. Endometrium measures 8 mm may be distended with fluid or possibly due to endometrial thickening. Follow-up with gynecology may be helpful for further evaluation. Radiation Dose CTDIVOL = (mGy): DLP = 1697.74 (mGy-cm)
[2021-06-01 19:34] LABS: Reflex Lactate Order REFLEX LACTIC ORDERD
[2021-06-01 19:38] VITALS: RESP 18
[2021-06-01] MEDS: ondansetron 2 mg/ML SDV 2 mL 4 MG IVP (19:38)
[2021-06-01] MEDS: morphine 4 mg/mL SDV 1 mL 2 MG IVP (19:38)
[2021-06-01] MEDS: sodium chloride 0.9% 1,000 ML 999 ML IV (19:46)
[2021-06-01 21:06] LABS: Lactic Acid level (Lactate) 0.4 mmol/L (0.5-2.2)
[2021-06-01 22:48] LABS: Add Urine Microscopic? YES; Bilirubin Urine Neg (Negative); Blood Urine 3+ (Negative); Glucose Urine UA Norm (Normal); Ketones Urine Negative (Negative); Leukocyte Esterase Urine 2+ (Negative); Nitrate Urine Negative (Negative); Protein Urine 1+ (Negative); Urine Appearance Cloudy (CLEAR); Urine Color Other (Yellow); Urobilinogen Urine Norm (Negative); pH Urine 6 (5-7)
[2021-06-01 22:51] LABS: Bacteria Urine 4+ /hpf; RBC Urine >100 /hpf (0-2); Squamous Epithelial Cell Urine 0-4 /hpf (0-5); WBC Urine TOO NUMEROUS TO CNT /hpf (0-5)
[2021-06-01 22:52] LABS: Add Urine Culture? Yes; Amorphous Sediment Urine 4+ /hpf; Mucus Urine 2+ /hpf
[2021-06-02 00:11] VITALS: RESP 18
[2021-06-02] MEDS: morphine 4 mg/mL SDV 1 mL 2 MG IVP (00:11)
[2021-06-02] MEDS: ciprofloxacin 500 mg Tablet PO (00:11)
[2021-06-02 02:40] VITALS: BP 106/59; PULSE 78; RESP 20; O2SAT 98
== END 2021-06-02 02:35 | disposition home or self-care (01) ==
PROVIDERS: Family Medicine; Emergency Provider Emergency Medicine; PCP Internal Medicine
DX: D50.0 Iron deficiency anemia secondary to blood loss (chronic) (principal); N30.01 Acute cystitis with hematuria; E11.22 Type 2 diabetes mellitus with diabetic chronic kidney disease; I12.0 Hypertensive chronic kidney disease with stage 5 chronic kidney disease or end stage renal disease; N18.6 End stage renal disease; Z99.2 Dependence on renal dialysis; I25.2 Old myocardial infarction; Z89.619 Acquired absence of unspecified leg above knee; F17.210 Nicotine dependence, cigarettes, uncomplicated
CPT/HCPCS: 71045; 74176; 80053; 81001; 82550; 83605; 83690; 85025; 87077; 87086; 87186; 96361; 96374; 96375; 96376; 99284; J2270; J2405; J7030

== ENCOUNTER 2021-06-04 07:46 | Emergency (ER) | payer MEDICARE, MEDICAID, SELFPAY ==
[2021-06-04 07:52] VITALS: BP 104/56; PULSE 106; RESP 22; TEMP 36.3; O2SAT 96; BMI 54.2
--- NOTE | 2021-06-04 07:55 | ECG_ITS ---
[facility] Test Date: 2021-06-04 Pat Name: Angelic Fiore Department: Room: Gender: Female Senior Paralegal: : 1945 Requested By: Esau Skelton Order Number: [id number] Reading MD: KOBE OWEN Measurements Intervals [place] Rate: 104 P: 52 OK: 256 QRS: -57 QRSD: 152 T: 11 QT: 394 QTc: 520 Interpretive Statements SINUS TACHYCARDIA WITH FIRST DEGREE AV BLOCK INDETERMINATE AXIS RIGHT BUNDLE BRANCH BLOCK [120+ ms QRS DURATION, UPRIGHT V1, 40+ ms S IN I/aVL/V4/V5/V6] LEFT ANTERIOR FASCICULAR BLOCK [QRS AXIS <= -45, QR IN I, RS IN II] INFERIOR MYOCARDIAL INFARCTION , PROBABLY OLD [40+ ms Q WAVE AND/OR ST/T ABNORMALITY IN II/aVF] ANTEROSEPTAL MYOCARDIAL INFARCTION , OF INDETERMINATE AGE [40+ ms Q WAVE IN V1-V4] Compared to ECG 07/06/2019 08:51:55 Right bundle-branch block now present Left anterior fascicular block now present Myocardial infarct finding now present Atrial fibrillation no longer present Electronically Signed On 06-04-2021 18:29:49 CDT by KOBE OWEN [email or web address]
--- NOTE | 2021-06-04 08:16 | ED_ITS ---
HPI - Altered Mental Status General: Chief Complaint: Altered Mental Status Stated Complaint: AMS Time Seen by Provider: 06/04/21 07:53 History of Present Illness: HPI narrative: 75-year-old female presents to the emergency room from the intermediate. She was scheduled for dialysis this morning she did miss it on Friday she was a little bit confused which generally happens when she misses dialysis. 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 care home nurse reports this is her typical baseline when she misses dialysis. On arrival here she is awake she is complaining of back pain in her buttocks she denies any cough chest pain or abdominal pain. MD complaint: confusion Onset (ago): hour(s) Severity: mild Consistency of symptoms: Waxing and Waning Context: other (End-stage renal disease) Associated symptoms: Deny auditory hallucinations, visual hallucinations, delusions, depression, homicidal ideation, racing thoughts or suicidal ideation Review of Systems Const: Denies: fever(s), chills or change in appetite Card: Denies: chest pain, edema, dyspnea on exertion or orthopnea Resp: Denies: dyspnea, productive cough or non-productive cough GI: Denies: abdominal pain, nausea, vomiting, hematemesis, coffee ground emesis, diarrhea, constipation, bloating, hematochezia or melena Skin/Breast: Denies: rash or pruritus Psych: Denies: depression, visual hallucinations, auditory hallucinations, suicidal ideation or homicidal ideation PFS ED PFSH: Medical History Arteriosclerotic heart disease Carotid stenosis Colon polyp Critical lower limb ischemia Diabetes mellitus Diverticulosis ESRD (end stage renal disease) on dialysis Essential hypertension Gastritis Normal colonoscopy NSTEMI (non-ST elevated myocardial infarction) Pulmonary hypertension PVD (peripheral vascular disease) Smoker Tricuspid valve regurgitation, nonrheumatic Surgical History H/O carpal tunnel repair H/O total knee replacement History of arteriovenostomy for renal dialysis History of back surgery History of below knee amputation History of cataract extraction History of PTCA History of total hip replacement Hx of above knee amputation Family History Brother Bleeding disorder Clotting disorder Diabetes Mother Bleeding disorder Clotting disorder CAD (coronary artery disease) Cancer Diabetes Lung disease Sister Bleeding disorder Clotting disorder Father Dementia Other Suicide attempt Denies family history of Chronic kidney disease (CKD) Suicide Anesthesia complication Stroke Social History Smoking and tobacco status: current every day smoker cigarettes Packs smoked per day: 0.5 Second hand smoke exposure: Yes Smoking risk assessment/counseling performed?: Yes Physical Exam Const: COMMON NORMALS: no acute distress GENERAL APPEARANCE: cooperative and comfortable HENMT: COMMON NORMALS: normocephalic and atraumatic HEAD & SCALP: normocephalic and atraumatic Eye: COMMON NORMALS: Equal, round and reactive pupils present, EOMs intact bilaterally, conjunctivae normal and no scleral icterus CONJUNCTIVA: Yes conjunctivae normal PUPIL: Yes Equal, round and reactive pupils present Neck/C-Spine: COMMON NORMALS: full ROM, no lymphadenopathy, supple and no JVD Lymph: LYMPHATIC: no lymphadenopathy noted and no lymphedema noted Resp: COMMON NORMALS: normal respiratory effort, No retractions, No use of accessory muscles and clear to auscultation bilaterally AUSCULTATION: clear to auscultation bilaterally Cardio: COMMON NORMALS: no JVD, regular rate, regular rhythm and No murmurs present (Cardio) RATE: regular rate RHYTHM: regular rhythm GI: COMMON NORMALS: Soft to palpation and No hepatosplenomegaly present AUSCULTATION: Yes normoactive bowel sounds PALPATION: Yes Soft to palpation, No Tenderness to palpation present (GI), No Guarding due to palpation present (GI) and Yes No hepatosplenomegaly present Psych: THOUGHT CONTENT: No delusions Skin: COMMON NORMALS: no rashes or lesions noted GENERAL SKIN EXAM: no r ashes or lesions noted Course Vital Signs: Vital signs: Vital Signs Temperature 97.4 F L 06/04/21 07:52 Pulse Rate 101 H 06/04/21 08:29 Respiratory Rate 18 06/04/21 08:29 Blood Pressure 96/41 06/04/21 08:29 Pulse Oximetry 96 06/04/21 08:29 MDM - Altered Mental Status MDM Narrative: Medical decision making narrative: Labs reviewed patient is essentially at her baseline for missing having missed dialysis. We will go ahead and get her over to dialysis for dialysis run. She is mildly hyponatremic which is typical for her as well as her mild anemia. Lab Data: Labs: Lab Results 06/04/21 06/04/21 Range/Units 08:26 08:26 WBC 10.9 H (4.0-10.0) 10^3/ uL RBC 3.23 L (4.1-5.3) 10^6/u L Hgb 9.8 L (11.5-15.3) g/dL Hct 32.5 L (37.0-47.0) % MCV 100.6 H (81-99) fl MCH 30.3 (28.0-34.0) pg MCHC 30.2 (30.0-36.0) g/dL RDW 21.7 H (12.1-15.1) % Plt Count 169 (130-400) 10^3/c mm MPV 11.0 H (7.4-10.4) fL Neut % (Auto) 86.6 % Lymph % (Auto) 7.5 % [place] % (Auto) 4.3 % Eos % (Auto) 0.6 % Baso % (Auto) 0.3 % Neut # (Auto) 9.40 H (1.8-7.7) 10^3/u L Lymph # (Auto) 0.8 (0.8-4.8) 10^3/u L [place] # (Auto) 0.5 (0.2-0.9) 10^3/u L Eos # (Auto) 0.1 (0.0-0.8) 10^3/u L Baso # (Auto) 0.0 (0.0-0.1) 10^3/u L Nucleated RBC % (a uto) 0.2 % Nucleated RBCs # 0.0 /100WBC Sodium 129 L (136-145) mmol/L Potassium 4.6 (3.5-5.1) mmol/L Chloride 89 L (98-107) mmol/L Carbon Dioxide 25 (22-29) mmol/L Anion Gap 19.6 H (5-19) BUN 48 H (8-23) mg/dL Creatinine 4.2 H (0.5-0.9) mg/dL GFR Calculation Not Reportable Glucose 102 (65-115) mg/dL Calculated Osmolal ity 281 L (285-295) mOsm/k g Calcium 7.7 L (8.5-10.5) mg/dL Total Bilirubin 0.6 (0.15-1.2) mg/dL AST 19 (0-32) U/L ALT 13 (0-33) U/L Alkaline Phosphata se 121 H (35-105) IU/L Total Protein 5.8 L (6.6-8.7) g/dL Albumin 2.2 L (3.5-5.2) g/dL Globulin 3.6 (1.3-4.6) g/dL Discharge Plan Discharge Patient Disposition: Home Clinical Impression: ESRD (end stage renal disease) on dialysis, Hyponatremia Condition: Stable Prescriptions: No Action Fiber Gummies 2 gram tablet,chewable 2 gm PO BID@1099,2099 RF: 0 hydroxyzine HCl 25 mg tablet 25 mg PO BID PRN (Reason: Itching) RF: 0 gabapentin 300 mg capsule 300 mg PO DAILY@1099 RF: 0 diclofenac sodium 1 % gel 2 g topical BID@799,1999 PRN (Reason: UNKNOWN) RF: 0 Flagyl 500 mg Tablet 500 mg PO BID@799,1999 RF: 0 Milk of Magnesia 400 mg/5 mL Suspension 400 mg PO DAILY PRN (Reason: Constipation) RF: 0 Novolog U-100 Insulin aspart 100 unit/mL Solution 6 unit SUBCUT TID@0630,1130,1630 RF: 0 Enema Disposable 19-7 gram/118 mL Enema 118 ml [place] DAILY PRN (Reason: Constipation) RF: 0 Preparation H 0.25-14-74.9 % Ointment See Rx Instructions .ROUTE .COMPLEX RF: 0 metoprolol tartrate 25 mg tablet 25 mg PO BID@899,2099 RF: 0 Cipro 500 mg tablet 500 mg PO .mwf Qty: 7 RF: 0 acetaminophen [Tylenol] 325 mg Tablet 650 mg PO QID MDD SEE PHARMACY COMMENT PRN (Reason: Pain) RF: 0 hydrocodone-acetaminophen 5-325 mg Tablet 2 tab PO Q4H PRN (Reason: Pain) RF: 0 ondansetron HCl [Zofran] 4 mg Tablet 4 mg PO Q6H PRN (Reason: NAUSEA) RF: 0 bisacodyl [Dulcolax (bisacodyl)] 10 mg Suppository 10 mg [place] DAILY PRN (Reason: CONSTIPATION) RF: 0 Tresiba FlexTouch U-100 100 unit/mL (3 mL) Insulin Pen 10 unit SUBCUT DAILY RF: 0 albuterol sulfate 2.5 mg /3 mL (0.083 %) Solution For Nebulization 2.5 mg INHALATION QID PRN (Reason: Shortness Of Breath Or Wheezing) RF: 0 nitroglycerin [Nitrostat] 0.4 mg Tablet, Sublingual 0.4 mg SUBLINGUAL Q5M PRN (Reason: Chest Pain) RF: 0 atorvastatin [Lipitor] 40 mg Tablet 40 mg PO BEDTIME@2100 RF: 0 loperamide [Imodium A-D] 2 mg Capsule 2 mg PO Q4H PRN (Reason: Diarrhea) RF: 0 citalopram [Celexa] 20 mg Tablet 20 mg PO DAILY@1100 RF: 0 pantoprazole [Protonix] 40 mg Tablet,Delayed Release (Dr/Ec) 40 mg PO DAILY@1800 RF: 0 calcium carbonate [Tums] 200 mg calcium (500 mg) Tablet,Chewable 200 mg PO TID@,, RF: 0 Discharge Orders: Discharge ED (Routine); Ordered 06/04/21 Ordered By: Esau Paredes Referrals: Boris Chaudhary DO [Primary Care Provider] - Discharge Diet: Usual diet Discharge Activity: Resume usual activity Patient Instructions: Opioid Safety Activity Restrictions/Additional Instructions: Discharged to dialysis for routine dialysis. Coding Level of Care Code ED Aviation Technical Systems Specialist for Eugenia Fwd Exam Comprehensive
[2021-06-04 08:29] VITALS: BP 96/41; PULSE 101; RESP 18; O2SAT 96
[2021-06-04 08:32] LABS: Basophils % 0.3 %; Eosinophils # 0.1 10^3/uL (0.0-0.8); Eosinophils % 0.6 %; Hematocrit 32.5 % (37.0-47.0); Hemoglobin 9.8 g/dL (11.5-15.3); Lymphocytes # 0.8 10^3/uL (0.8-4.8); Lymphocytes % 7.5 %; Mean Corpuscular HGB Conc 30.2 g/dL (30.0-36.0); Mean Corpuscular Hemoglobin 30.3 pg (28.0-34.0); Mean Corpuscular Volume 100.6 fl (81-99); Monocytes # 0.5 10^3/uL (0.2-0.9); Monocytes % 4.3 %; Neutrophils % 86.6 %; Nucleated Red Blood Cells % 0.2 %; Platelet Count 169 10^3/cmm (130-400); Red Blood Count 3.23 10^6/uL (4.1-5.3); Red Cell Distribution Width 21.7 % (12.1-15.1); White Blood Count 10.9 10^3/uL (4.0-10.0)
[2021-06-04 08:54] LABS: Alanine Aminotransferase 13 U/L (0-33); Albumin Level 2.2 g/dL (3.5-5.2); Alkaline Phosphatase 121 IU/L (35-105); Aspartate Amino Transferase 19 U/L (0-32); Blood Urea Nitrogen 48 mg/dL (8-23); Calcium 7.7 mg/dL (8.5-10.5); Carbon Dioxide 25 mmol/L (22-29); Chloride 89 mmol/L (98-107); Globulin 3.6 g/dL (1.3-4.6); Glucose 102 mg/dL (65-115); Osmolality Calculated 281 mOsm/kg (285-295); Sodium 129 mmol/L (136-145); Total Bilirubin 0.6 mg/dL (0.15-1.2); Total Protein 5.8 g/dL (6.6-8.7)
[2021-06-04 09:04] LABS: Anion Gap 19.6 (5-19); Potassium 4.6 mmol/L (3.5-5.1)
[2021-06-04 10:45] VITALS: BP 101/53; PULSE 99; RESP 20; O2SAT 98
--- NOTE | 2021-06-04 11:08 | PC.NURSE ---
report to karis salguero
--- NOTE | 2021-06-04 11:13 | PC.NURSE ---
Assumed care of this patient at this time.
[2021-06-04 11:14] VITALS: BP 78/48; PULSE 92; RESP 22; TEMP 36.7; O2SAT 95
[2021-06-04 11:20] VITALS: BP 85/64; PULSE 90; RESP 18; O2SAT 96
--- NOTE | 2021-06-04 11:20 | PC.NURSE ---
Notified doctor of patients blood pressure.
[2021-06-04 13:06] VITALS: BP 111/78; PULSE 112; RESP 18; TEMP 36.5; O2SAT 94
== END 2021-06-04 13:19 | disposition home or self-care (01) ==
PROVIDERS: Emergency Provider Family Medicine; PCP Internal Medicine
DX: I12.0 Hypertensive chronic kidney disease with stage 5 chronic kidney disease or end stage renal disease (principal); E11.22 Type 2 diabetes mellitus with diabetic chronic kidney disease; N18.6 End stage renal disease; Z99.2 Dependence on renal dialysis; E87.1 Hypo-osmolality and hyponatremia; Z79.4 Long term (current) use of insulin; I25.2 Old myocardial infarction; Z89.619 Acquired absence of unspecified leg above knee; F17.210 Nicotine dependence, cigarettes, uncomplicated
CPT/HCPCS: 80053; 85025; 93005; 99282

== ENCOUNTER 2021-07-19 16:17 | Emergency (ER) | payer MEDICARE, MEDICAID, SELFPAY ==
[2021-07-19 16:22] VITALS: BP 89/50; PULSE 99; RESP 20; TEMP 36.4; O2SAT 95
[2021-07-19 16:24] LABS: Glucose Point of Care 266 mg/dL (70-110)
[2021-07-19 17:08] VITALS: BP 100/44; RESP 20
[2021-07-19 17:22] LABS: Basophils # 0.1 10^3/uL (0.0-0.1); Basophils % 0.5 %; Eosinophils # 0.2 10^3/uL (0.0-0.8); Eosinophils % 1.3 %; Hematocrit 35.8 % (37.0-47.0); Hemoglobin 11.2 g/dL (11.5-15.3); Lymphocytes # 1.2 10^3/uL (0.8-4.8); Lymphocytes % 9.2 %; Mean Corpuscular HGB Conc 31.3 g/dL (30.0-36.0); Mean Corpuscular Hemoglobin 33.5 pg (28.0-34.0); Mean Corpuscular Volume 107.2 fl (81-99); Mean Platelet Volume 9.4 fL (7.4-10.4); Monocytes # 0.9 10^3/uL (0.2-0.9); Monocytes % 7.3 %; Neutrophils # 10.49 10^3/uL (1.8-7.7); Neutrophils % 81.4 %; Nucleated Red Blood Cells % 0 %; Platelet Count 270 10^3/cmm (130-400); Red Blood Count 3.34 10^6/uL (4.1-5.3); Red Cell Distribution Width 20.6 % (12.1-15.1); White Blood Count 12.9 10^3/uL (4.0-10.0)
--- NOTE | 2021-07-19 17:24 | ED_ITS ---
HPI - General Adult General: Chief complaint: General Medical Stated complaint: HYPOGLYCEMIA Time Seen by Provider: 07/19/21 16:19 History of Present Illness: HPI narrative: Pt is a 76-year-old female with history of bilateral AKA, diabetes, renal failure on intermittent dialysis, chronically bedbound who presents emergency room with concerns of hyperglycemia and hypotension. Patient was found unresponsive this morning at [facility]. That point time, patient had a glucose of 22 was given glucagon. By time EMS arrived, patient received 150 mL of dextrose 10% with improvement of glucose to 66 on arrival in the emergency room. Arrival, patient is AOx3, fully conversant. Patient does not recall exactly what happened. Patient reports that her back hurts. Patient denies any fever chills, or other complaints at this time. Patient is not taking any sulfonylurea at this time. She takes Humalog/Tresiba at home. Onset: earlier today Duration:once Location:home Severity:moderate/severe Review of Systems Narrative: Constitutional: No fever, no chills. HEENT: No vision changes CV: No chest pain, no palpitations PULM: no cough, no dyspnea. GI: No abdominal pain, no N/V/D. : No dysuria, +rectal pain MSKEL: No muscle pain SKIN: No new rashes, no lesions. NEURO: No headache, no focal weakness. HEME: No visible bruises PSYCH: Normal mood PFSH ED PFSH: Medical History Arteriosclerotic heart disease Carotid stenosis Colon polyp Critical lower limb ischemia Diabetes mellitus Diverticulosis ESRD (end stage renal disease) on dialysis Essential hypertension Gastritis Normal colonoscopy NSTEMI (non-ST elevated myocardial infarction) Pulmonary hypertension PVD (peripheral vascular disease) Smoker Tricuspid valve regurgitation, nonrheumatic Surgical History H/O carpal tunnel repair H/O total knee replacement History of arteriovenostomy for renal dialysis History of back surgery History of below knee amputation History of cataract extraction History of PTCA History of total hip replacement Hx of above knee amputation Family History Brother Bleeding disorder Clotting disorder Diabetes Mother Bleeding disorder Clotting disorder CAD (coronary artery disease) Cancer Diabetes Lung disease Sister Bleeding disorder Clotting disorder Father Dementia Other Suicide attempt Denies family history of Chronic kidney disease (CKD) Suicide Anesthesia complication Stroke Social History Second hand smoke exposure: Yes Smoking risk assessment/counseling performed?: Yes Female Reproductive History: Date of last menstrual period: 12/21/20 Physical Exam Narrative: EXAM NARRATIVE: Head: Atraumatic Eyes: PERRL, conjunctiva without injection ENT: Mucous membrane moist NECK: Supple, ROM intact LUNGS: LCTAB, no crackles/rhonchi CV: RRR ABDOMEN: Soft, nontender in all quadrants EXTREMITY: AKA b/l SKIN: No rash or erythema NEURO: Awake and alert, no focal motor deficits PSYCH: Normal mood and affect : Exam supervised by [employer] tech: mild erythema around the gluteal folds with moderate tenderness palpation Course Vital Signs: Vital signs: Vital Signs Temperature 97.6 F 07/19/21 16:22 Pulse Rate 67 07/19/21 18:51 Respiratory Rate 16 07/19/21 18:51 Blood Pressure 111/78 07/19/21 18:51 Pulse Oximetry 97 07/19/21 18:51 MDM - General Adult MDM Narrative: Medical decision making narrative: 76-year-old female with history of diabetes, bilateral AKA, on Tresiba, and Humalog for diabetes presenting to the emergency room with concerns of hypoglycemia hypotension. On arrival, patient had glucose of 266. Patient is AAO x3 fully responsive. Patient is complaining of rectal area pain. On exam, patient is found to have erythema around gluteal folds with moderate tenderness to palpatoin Workup: CBC, CMP, Lipase, CT abd+pelvis, UA Intervention: Observations for hypoglyceima Her blood work showed a glucose of 30 this was from EMS blood sample that was drawn prior to patient's arrival. On multiple occasions patient had fingerstick of 226 initially and 90 on repeat. Patient tolerated p.o. without any difficulty. Serial glucose showed improvement. Patient has a white count 12.9 today. Creatinine of 4.6. Currently undergoes dialysis and has not had dialysis Friday. There is no signs of hyperkalemia or increased shortness of breath requiring emergent dialysis at this time. CT abdomen pelvis showed mild colitis and mild cystitis. Will treat with augmetin for abdominal infection and UTI. This was also urgently discussed with poison control. However this time, it is unclear whether the overdose existed. Poison center recommended observing patient for 2 to 3 hours and discharge if glucose appears to be normal. Patient was observed during that time without any signs of hypoglycemia. No signs of rectal infection. Likely erythema in the glutes is from skin erosion. Rx augmentin BID x 7 days Disposition: Discharge. Caregivers given strict return precaution for any worsening signs of fever/chills, nausea/vomiting, or any new or concerning complaints. Lab Data: Labs: Lab Results 07/19/21 07/19/21 07/19/21 16:21 16:26 16:26 WBC 12.9 10^3/uL H 10 ^3/uL (4.0-10.0) RBC 3.34 10^6/uL L 10 ^6/uL (4.1-5.3) Hgb 11.2 g/dL L g/dL (11.5-15.3) Hct 35.8 % L % (37.0-47.0) MCV 107.2 fl H fl (81-99) MCH 33.5 pg pg (28.0-34.0) MCHC 31.3 g/dL g/dL (30.0-36.0) RDW 20.6 % H % (12.1-15.1) Plt Count 270 10^3/cmm 10^3 /cmm (130-400) MPV 9.4 fL fL (7.4-10.4) Neut % (Auto) 81.4 % % Lymph % (Auto) 9.2 % % [place] % (Auto) 7.3 % % Eos % (Auto) 1.3 % % Baso % (Auto) 0.5 % % Neut # (Auto) 10.49 10^3/uL H 1 0^3/uL (1.8-7.7) Lymph # (Auto) 1.2 10^3/uL 10^3/ uL (0.8-4.8) [place] # (Auto) 0.9 10^3/uL 10^3/ uL (0.2-0.9) Eos # (Auto) 0.2 10^3/uL 10^3/ uL (0.0-0.8) Baso # (Auto) 0.1 10^3/uL 10^3/ uL (0.0-0.1) Nucleated RBC % (a uto) 0 % % Nucleated RBCs # 0.0 /100WBC /100W BC Sodium 134 mmol/L L mmol /L (136-145) Potassium 3.5 mmol/L mmol/L (3.5-5.1) Chloride 93 mmol/L L mmol/ L (98-107) Carbon Dioxide 27 mmol/L mmol/L (22-29) Anion Gap 17.5 (5-19) BUN 42 mg/dL H mg/dL (8-23) Creatinine 4.6 mg/dL H mg/dL (0.5-0.9) GFR Calculation Not Reportable Glucose 30 mg/dL L* mg/dL (65-115) POC Glucose 266 mg/dL H mg/dL (70-110) Calculated Osmolal ity 285 mOsm/kg mOsm/ kg (285-295) Calcium 8.7 mg/dL mg/dL (8.5-10.5) Total Bilirubin 0.6 mg/dL mg/dL (0.15-1.2) AST 26 U/L U/L (0-32) ALT 15 U/L U/L (0-33) Alkaline Phosphata se 153 IU/L H IU/L (35-105) Total Protein 6.4 g/dL L g/dL (6.6-8.7) Albumin 2.3 g/dL L g/dL (3.5-5.2) Globulin 4.1 g/dL g/dL (1.3-4.6) 07/19/21 07/19/21 07/19/21 17:38 18:05 18:07 WBC RBC Hgb Hct MCV MCH MCHC RDW Plt Count MPV Neut % (Auto) Lymph % (Auto) [place] % (Auto) Eos % (Auto) Baso % (Auto) Neut # (Auto) Lymph # (Auto) [place] # (Auto) Eos # (Auto) Baso # (Auto) Nucleated RBC % (a uto) Nucleated RBCs # Sodium Potassium Chloride Carbon Dioxide Anion Gap BUN Creatinine GFR Calculation Glucose POC Glucose 97 mg/dL mg/dL 244 mg/dL H mg/dL 96 mg/dL mg/dL (70-110) (70-110) (70-110) Calculated Osmolal ity Calcium Total Bilirubin AST ALT Alkaline Phosphata se Total Protein Albumin Globulin 07/19/21 19:05 WBC RBC Hgb Hct MCV MCH MCHC RDW Plt Count MPV Neut % (Auto) Lymph % (Auto) [place] % (Auto) Eos % (Auto) Baso % (Auto) Neut # (Auto) Lymph # (Auto) [place] # (Auto) Eos # (Auto) Baso # (Auto) Nucleated RBC % (a uto) Nucleated RBCs # Sodium Potassium Chloride Carbon Dioxide Anion Gap BUN Creatinine GFR Calculation Glucose POC Glucose 87 mg/dL mg/dL (70-110) Calculated Osmolal ity Calcium Total Bilirubin AST ALT Alkaline Phosphata se Total Protein Albumin Globulin Imaging Data^: Other Imaging: Radiologist's impression: [facility] [place] [id number] Scan ReportSigned Patient: Angelic Fiore #: [id number]: [id number]#:[id number]/Sex: 76 / FADM Date: 07/19/21Loc: ERRoom/Bed:Attending Dr: Ordering Provider/Ordering MD: Sonu Ramos MD Date of Service: 07/19/21 Procedure(s): CT abdomen pelvis con [id number] Accession Number(s): [id number] Report Number: [id number] PROCEDURE INFORMATION: Exam: CT Abdomen And Pelvis Without Contrast Exam date and time: 07/19/2021 5:41 PM Age: 76 years old Clinical indication: Other: Pain in the buttocks; Prior surgery; Surgery type: RT hip, gb; Additional info: CR of 4, suspect glute/rectal area infection TECHNIQUE: Imaging protocol: Computed tomography of the abdomen and pelvis without contrast. Radiation optimization: All CT scans at this facility use at least one of these dose optimization techniques: automated exposure control; mA and/or kV adjustment per patient size (includes targeted exams where dose is matched to clinical indication); or iterative reconstruction. COMPARISON: CT abdomen pelvis wo con [id number] 06/01/2021 8:04 PM RADIATION DOSE METRICS: Total DLP (mGy-cm): 1859.33 FINDINGS: Lungs: Emphysematous changes. Bibasilar atelectasis versus minimal infiltrate. Pleural spaces: Trace bilateral pleural effusions. Heart: Coronary artery atherosclerotic calcifications. Liver: Normal. No mass. Gallbladder and bile ducts: Cholecystectomy. Pancreas: Normal. No ductal dilation. Spleen: Normal. No splenomegaly. Adrenal glands: Normal. No mass. Kidneys and ureters: Bilateral renal atrophy. Stomach and bowel: Diffuse colonic wall thickening may reflect a colitis. Appendix: No evidence of appendicitis. Intraperitoneal space: Unremarkable. No free air. No significant fluid collection. Vasculature: Unremarkable. No abdominal aortic aneurysm. Lymph nodes: Unremarkable. No enlarged lymph nodes. Urinary bladder: Diffuse urinary bladder wall thickening may reflect a cystitis. Reproductive: Unremarkable as visualized. Bones/joints: Unremarkable. No acute fracture. Soft tissues: Focal subcutaneous emphysema over the right lower quadrant may be due to an injection. CT/CT abdomen pelvis wo con [id number] IMPRESSION: 1. Diffuse colonic wall thickening may reflect a colitis. 2. Focal subcutaneous emphysema over the right lower quadrant may be due to an injection. 3. Diffuse urinary bladder wall thickening may reflect a cystitis. 4. Trace bilateral pleural effusions. 5. Coronary artery atherosclerotic calcifications. 6. Emphysematous changes. 7. Bibasilar atelectasis versus minimal infiltrate. 8. Cholecystectomy. 9. Bilateral renal atrophy. Radiation Dose CTDIVOL = (mGy): DLP = 1859.33 (mGy-cm) Dictated By:Facundo Babcock MDSigned By:Facundo Babcock MDSigned Date/Time:07/19/214DD/ 40 Discharge Plan Discharge Patient Disposition: Home Clinical Impression: Colitis, Bacterial UTI, CKD (chronic kidney disease), Hypoglycemia Condition: Stable Prescriptions: New Augmentin 875-125 mg tablet 1 tab PO BID 10 Days Qty: 20 RF: 0 No Action Fiber Gummies 2 gram tablet,chewable 2 gm PO BID@1100,2100 RF: 0 hydroxyzine HCl 25 mg tablet 25 mg PO BID PRN (Reason: Itching) RF: 0 gabapentin 300 mg capsule 300 mg PO DAILY@1100 RF: 0 diclofenac sodium 1 % gel 2 g topical BID@0800,1999 PRN (Reason: UNKNOWN) RF: 0 Flagyl 500 mg Tablet 500 mg PO BID@0800,1999 RF: 0 Milk of Magnesia 400 mg/5 mL Suspension 400 mg PO DAILY PRN (Reason: Constipation) RF: 0 Novolog U-100 Insulin aspart 100 unit/mL Solution 6 unit SUBCUT TID@0630,1130,1630 RF: 0 Enema Disposable 19-7 gram/118 mL Enema 118 ml [place] DAILY PRN (Reason: Constipation) RF: 0 Preparation H 0.25-14-74.9 % Ointment See Rx Instructions .ROUTE .COMPLEX RF: 0 metoprolol tartrate 25 mg tablet 25 mg PO BID@0900,2100 RF: 0 Cipro 500 mg tablet 500 mg PO .mwf Qty: 7 RF: 0 acetaminophen [Tylenol] 325 mg Tablet 650 mg PO QID MDD SEE PHARMACY COMMENT PRN (Reason: Pain) RF: 0 hydrocodone-acetaminophen 5-325 mg Tablet 2 tab PO Q4H PRN (Reason: Pain) RF: 0 ondansetron HCl [Zofran] 4 mg Tablet 4 mg PO Q6H PRN (Reason: NAUSEA) RF: 0 bisacodyl [Dulcolax (bisacodyl)] 10 mg Suppository 10 mg [place] DAILY PRN (Reason: CONSTIPATION) RF: 0 Tresiba FlexTouch U-100 100 unit/mL (3 mL) Insulin Pen 10 unit SUBCUT DAILY RF: 0 albuterol sulfate 2.5 mg /3 mL (0.083 %) Solution For Nebulization 2.5 mg INHALATION QID PRN (Reason: Shortness Of Breath Or Wheezing) RF: 0 nitroglycerin [Nitrostat] 0.4 mg Tablet, Sublingual 0.4 mg SUBLINGUAL Q5M PRN (Reason: Chest Pain) RF: 0 atorvastatin [Lipitor] 40 mg Tablet 40 mg PO BEDTIME@2100 RF: 0 loperamide [Imodium A-D] 2 mg Capsule 2 mg PO Q4H PRN (Reason: Diarrhea) RF: 0 citalopram [Celexa] 20 mg Tablet 20 mg PO DAILY@1100 RF: 0 pantoprazole [Protonix] 40 mg Tablet,Delayed Release (Dr/Ec) 40 mg PO DAILY@1800 RF: 0 calcium carbonate [Tums] 200 mg calcium (500 mg) Tablet,Chewable 200 mg PO TID@,, RF: 0 Discharge Orders: Discharge ED (Routine); Ordered 07/19/21 Ordered By: Sonu Ramos Discharge Diet: Advance as tolerated Discharge Activity: Resume usual activity Patient Instructions: Hypoglycemia in a Person with Diabetes (ED) Activity Restrictions/Additional Instructions: Please come back to the emergency room if you have any more episodes of hypoglyc emia, weakness, chest pain, shortness of breath, or any signs of infection. Please take your antibiotics as instructed. Coding Level of Care Code ED Child Care for Eugenia Duval
[2021-07-19 17:33] LABS: Alanine Aminotransferase 15 U/L (0-33); Albumin Level 2.3 g/dL (3.5-5.2); Alkaline Phosphatase 153 IU/L (35-105); Anion Gap 17.5 (5-19); Aspartate Amino Transferase 26 U/L (0-32); Blood Urea Nitrogen 42 mg/dL (8-23); Calcium 8.7 mg/dL (8.5-10.5); Carbon Dioxide 27 mmol/L (22-29); Chloride 93 mmol/L (98-107); Globulin 4.1 g/dL (1.3-4.6); Osmolality Calculated 285 mOsm/kg (285-295); Potassium 3.5 mmol/L (3.5-5.1); Sodium 134 mmol/L (136-145); Total Bilirubin 0.6 mg/dL (0.15-1.2); Total Protein 6.4 g/dL (6.6-8.7)
[2021-07-19 17:36] LABS: Glucose 30 mg/dL (65-115)
[2021-07-19] MEDS: acetaminophen 500 mg Tablet 1000 MG PO (17:40)
--- NOTE | 2021-07-19 17:41 | CTR_ITS ---
PROCEDURE INFORMATION: Exam: CT Abdomen And Pelvis Without Contrast Exam date and time: 07/19/2021 5:41 PM Age: 76 years old Clinical indication: Other: Pain in the buttocks; Prior surgery; Surgery type: RT hip, gb; Additional info: CR of 4, suspect glute/rectal area infection TECHNIQUE: Imaging protocol: Computed tomography of the abdomen and pelvis without contrast. Radiation optimization: All CT scans at this facility use at least one of these dose optimization techniques: automated exposure control; mA and/or kV adjustment per patient size (includes targeted exams where dose is matched to clinical indication); or iterative reconstruction. COMPARISON: CT abdomen pelvis wo con [id number] 06/01/2021 8:04 PM RADIATION DOSE METRICS: Total DLP (mGy-cm): 1859.33 FINDINGS: Lungs: Emphysematous changes. Bibasilar atelectasis versus minimal infiltrate. Pleural spaces: Trace bilateral pleural effusions. Heart: Coronary artery atherosclerotic calcifications. Liver: Normal. No mass. Gallbladder and bile ducts: Cholecystectomy. Pancreas: Normal. No ductal dilation. Spleen: Normal. No splenomegaly. Adrenal glands: Normal. No mass. Kidneys and ureters: Bilateral renal atrophy. Stomach and bowel: Diffuse colonic wall thickening may reflect a colitis. Appendix: No evidence of appendicitis. Intraperitoneal space: Unremarkable. No free air. No significant fluid collection. Vasculature: Unremarkable. No abdominal aortic aneurysm. Lymph nodes: Unremarkable. No enlarged lymph nodes. Urinary bladder: Diffuse urinary bladder wall thickening may reflect a cystitis. Reproductive: Unremarkable as visualized. Bones/joints: Unremarkable. No acute fracture. Soft tissues: Focal subcutaneous emphysema over the right lower quadrant may be due to an injection. CT/CT abdomen pelvis con [id number] IMPRESSION: 1. Diffuse colonic wall thickening may reflect a colitis. 2. Focal subcutaneous emphysema over the right lower quadrant may be due to an injection. 3. Diffuse urinary bladder wall thickening may reflect a cystitis. 4. Trace bilateral pleural effusions. 5. Coronary artery atherosclerotic calcifications. 6. Emphysematous changes. 7. Bibasilar atelectasis versus minimal infiltrate. 8. Cholecystectomy. 9. Bilateral renal atrophy. Radiation Dose CTDIVOL = (mGy): DLP = 1859.33 (mGy-cm)
[2021-07-19 17:42] LABS: Glucose Point of Care 97 mg/dL (70-110)
--- NOTE | 2021-07-19 17:46 | PC.NURSE ---
Blood sugar [address] Ramos.
[2021-07-19 18:11] LABS: Glucose Point of Care 96 mg/dL (70-110)
[2021-07-19 18:11] LABS: Glucose Point of Care 244 mg/dL (70-110)
[2021-07-19 18:51] VITALS: BP 111/78; PULSE 67; RESP 16; O2SAT 97
[2021-07-19 19:09] LABS: Glucose Point of Care 87 mg/dL (70-110)
[2021-07-19] MEDS: sodium chloride 0.9% 250 ML IV (19:25)
[2021-07-19 20:00] VITALS: BP 116/72; PULSE 84; RESP 18
[2021-07-19 22:00] VITALS: BP 108/69; PULSE 70; RESP 18; O2SAT 98
[2021-07-20] VITALS: BP 104/66; RESP 16; O2SAT 94
[2021-07-20 01:17] VITALS: BP 104/58; RESP 16; O2SAT 94
== END 2021-07-20 00:45 | disposition home or self-care (01) ==
PROVIDERS: Emergency Provider Emergency Medicine
DX: E11.649 Type 2 diabetes mellitus with hypoglycemia without coma (principal); K52.9 Noninfective gastroenteritis and colitis, unspecified; N39.0 Urinary tract infection, site not specified; B96.89 Other specified bacterial agents as the cause of diseases classified elsewhere; E11.22 Type 2 diabetes mellitus with diabetic chronic kidney disease; I12.0 Hypertensive chronic kidney disease with stage 5 chronic kidney disease or end stage renal disease; N18.6 End stage renal disease; Z79.4 Long term (current) use of insulin; I25.2 Old myocardial infarction; Z89.519 Acquired absence of unspecified leg below knee; Z89.619 Acquired absence of unspecified leg above knee; Z77.22 Contact with and (suspected) exposure to environmental tobacco smoke (acute) (chronic)
CPT/HCPCS: 36416; 74176; 80053; 82962; 85025; 96360; 99284; J7050